=== PATIENT | female | born 1930 | race Caucasian/White ===

== ENCOUNTER 2017-10-07 15:18 | Inpatient (IN) ==
[2017-10-07] MEDS ORDERED: MORPHINE SULFATE 2mg INJECTION IVP PRN (17:17)
[2017-10-07] MEDS ORDERED: NITROGLYCERIN 0.4 MG SUBLINGUAL TABLET SL PRN (17:17)
[2017-10-07] MEDS ORDERED: ONDANSETRON 4 MG/2 ML INJECTION IVP PRN (17:17)
[2017-10-07 17:24] VITALS: BMI 41.3
[2017-10-07] MEDS ORDERED: MELATONIN 5 MG TABLET PO PRN (18:18)
[2017-10-07] MEDS ORDERED: ENOXAPARIN 150 MG/ML INJECTION SQ ONE (18:30)
[2017-10-07] MEDS ORDERED: ENOXAPARIN 120 MG/0.8 ML INJECTION SQ ONE (18:30)
[2017-10-07] MEDS ORDERED: SACUBITRIL/VALSARTAN 49/51mg TABLET PO SCH (21:00)
[2017-10-07] MEDS: ROPINIROLE 1 MG TABLET PO SCH (21:43)
[2017-10-07] MEDS: ASPIRIN 325 MG TABLET PO SCH (21:43)
[2017-10-07] MEDS: MONTELUKAST 10 MG TABLET PO SCH (21:44)
[2017-10-07] MEDS: ATORVASTATIN 20 MG TABLET PO SCH (21:44)
[2017-10-07] MEDS: GUAIFENESIN 400MG TABLET PO SCH (21:44)
[2017-10-07] MEDS: ALBUTEROL 2.5mg/3ml (0.083%) NEB AEROSOL PRN (23:02)
[2017-10-08] MEDS: PANTOPRAZOLE 40 MG TABLET PO SCH (07:13)
[2017-10-08] MEDS: LEVOTHYROXINE 25 MCG TABLET PO SCH (07:13)
--- NOTE | 2017-10-08 07:31 | Cardiology History & Physical ---
History of Present Illness Chief complaint: SOA, cough, hypoxia, influenza A HPI: Marlyn is a 87 year old female who is well known to Dr. Mcdermott with a history of aortic stenosis, carotid stenosis, HTN, HLD, DM TYPE II, COPDand Medtronic PPM who was admitted to [facility] yesterday after being diagnosed with Influenza A in the ED on 10/05/17 and sent home with QID albuterol nebulizers, who returned tachypneic, coughing and hypoxic with O2 sat of 85% on room air. Her troponin was found to be elevated at 0.308 and she was transferred to [facility] in the care of her drug worker, Dr. Mcdermott. She is examined in her room on the Medical floor. She has frequent productive cough, audible wheezes and stridor. She is tachypneic and has conversational dyspnea. She reports fever, chills, fatigue, dyspnea, cough. She denies chest pain or pressure. Review of Systems - Constitutional Constitutional: Present: as per HPI, chills, fatigue, fever(s) - EENMT Eyes: Absent: change in vision Balance: Absent: vertigo Mouth/Throat: Absent: sore throat - Cardiovascular Cardiovascular: Present: dyspnea on exertion. Absent: chest pain, palpitations , syncope - Respiratory Respiratory: Present: as per HPI, cough, dyspnea, dyspnea on exertion, wheezing - Gastrointestinal Gastrointestinal: Absent: abdominal pain, diarrhea, nausea, vomiting - Integumentary/Breasts Integumentary: Absent: rash - Neurological Neurological: Absent: dizziness - Endocrine Endocrine: Absent: palpitations PFSH Patient Stated Medical History Cataracts Yes Dental Problems Yes: UPPERS AND LOWERS Hearing Loss Yes: MILD Cardiac Arrhythmia Yes Congestive Heart Failure Yes Hypertension Yes Asthma Yes Bronchitis Yes Chronic Obstructive Pulmonary Yes Disease (COPD) Pneumonia Yes Pulmonary Edema Yes Sleep Apnea Yes Diabetes Mellitus Type 2 Yes Gastroesophageal Reflux Yes Disease Hx Incontinence Yes Hx Urinary Tract Infection Yes Sepsis Yes Depression Yes Menorrhagia Yes Surgical History: cholecystectomy. hysterectomy. lumbar disc surgery. knee replacement. Medtronic PPM. rotator cuff repair Family History: Mother - of renal failure Father - of lung disease Brother - lung disease Sister - lung disease - Social History Smoking status: Former smoker Substance use type: does not use Alcohol intake frequency: does not drink Household members: none Current occupational status: retired Current residence: Apartment/Private Home Medications Home Medications Medication Instructions Recorded Confirmed Type ALPRAZolam [Xanax] 0.25 mg PO BID PRN 08/02/17 10/09/17 History Albuterol Sulfate 2.5 mg AEROSOL Q4HR PRN 08/02/17 10/09/17 History Aspirin [ASA] 325 mg PO HS 08/02/17 10/08/17 History Atorvastatin [Lipitor] 20 tab PO HS 08/02/17 10/08/17 History Fluticasone/Vilanterol [Breo 1 puff INH DAILY 08/02/17 10/09/17 History Ellipta 200-25 Mcg Inhaler] Furosemide [Lasix] 20 tab PO DAILY 08/02/17 10/08/17 History Guaifenesin [Mucinex] 600 mg PO BID 08/02/17 10/08/17 History Isosorbide Mononitrate ER [Imdur] 60 mg PO DAILY 08/02/17 10/09/17 History Levothyroxine Tab [Synthroid] 25 mcg PO ACB 08/02/17 10/08/17 History Melatonin 5 mg Tablet 5 mg PO HS PRN 08/02/17 10/08/17 History Metformin HCl [Glucophage] 500 mg PO BID 08/02/17 10/08/17 History Montelukast Sodium [Singulair] 10 mg PO HS 08/02/17 10/08/17 History Pantoprazole Sodium [Protonix] 40 mg PO DAILY 08/02/17 10/08/17 History Ropinirole [Requip] 1 mg PO HS 08/02/17 10/08/17 History Benzonatate 1 cap PO TID 10/09/17 10/09/17 History Escitalopram Oxalate [Lexapro] 10 mg PO DAILY 10/09/17 10/09/17 History Oseltamivir Cap [Tamiflu] 75 mg PO BID 10/09/17 10/09/17 History Oxycodone/Apap 10/325 [Percocet 1 - 2 tab PO Q4HR PRN 10/09/17 10/09/17 History 10/325] Tiotropium [place] [Spiriva 2.5 mcg ORAL INH DAILY 10/09/17 10/09/17 History Respimat] Trazodone [Desyrel] 50 mg PO HS 10/09/17 10/09/17 History Allergies Allergy/AdvReac Type Severity Reaction Status Date / Time amoxicillin [From Augmentin] AdvReac Unknown Verified 10/08/17 19:06 clavulanic acid AdvReac Unknown Verified 10/08/17 19:06 [From Augmentin] Exam Vital signs: Temperature 98.1 F 10/08/17 04:00 Pulse Rate 91 10/08/17 04:00 Respiratory Rate 22 10/08/17 04:00 Blood Pressure 119/65 10/08/17 04:00 Pulse Oximetry 97 10/08/17 04:00 - Constitutional mild distress, well nourished, cooperative - Routine HEENT Exam Head: Present: normocephalic ENT: Present: mucous membranes moist - Routine Neck Exam Absent: JVD, carotid bruit - Routine Chest/Breast/Axilla Exam Chest wall: Absent: tenderness - Routine Respiratory Exam Present: dyspnea, stridor, wheezes, diminished air movement. Absent: CTA bilaterally - Routine Cardiovascular Exam Present: RRR, no murmur - Routine Abdominal Exam Present: soft, normoactive bowel sounds - Routine Extremities Exam Present: no edema - Routine Skin Exam Present: intact, dry, warm - Routine Neurological Exam Present: alert, oriented X3 - Routine Psychiatric Exam Present: normal affect, normal thought process Results 10/09/17 04:32 10/09/17 04:32 Cardiac Enzymes 10/07/17 10/07/17 10/08/17 Range/Units 17:55 23:10 04:26 AST 31 31 (14-36) U/L Troponin I 0.261 H 0.321 H 0.218 H (0-0.12) ng/ml CBC 10/08/17 Range/Units 04:26 WBC 6.7 (4.5-11.0) T/MM3 RBC 3.70 L (4.00-5.20) M/MM3 Hgb 10.7 L (12-16) GM/DL Hct 35.0 L (36-46) % Plt Count 146 (130-400) T/MM3 Neut # (Auto) 4.8 (1.8-7.7) T/MM3 Lymph # (Auto) 1.2 (1-4.8) T/MM3 [place] # (Auto) 0.6 (0-0.8) T/MM3 Eos # (Auto) 0.1 (0-0.5) T/MM3 Baso # (Auto) 0.0 (0-0.2) T/MM3 Comprehensive Metabolic Panel 10/07/17 10/08/17 Range/Units 17:55 04:26 Sodium 135 136 (134-144) MEQ/L Potassium 4.0 4.1 (3.6-5) MEQ/L Chloride 103 103 (98-107) MEQ/L Carbon Dioxide 25 27 (22-30) MEQ/L BUN 20.0 H 15.0 (7-17) MG/DL Creatinine 1.1 1.0 (0.7-1.2) MG/DL Glucose 113 H 125 H (65-110) MG/DL Calcium 8.6 8.5 (8.4-10.2) MG/DL AST 31 31 (14-36) U/L ALT 31 29 (9-52) U/L Alkaline Phosphatase 55 68 (38-126) U/L Total Protein 5.4 L 5.3 L (6.3-8.2) G/DL Albumin 3.1 L 3.0 L (3.5-5.0) G/DL Intake and Output 10/07/17 10/08/17 10/08/17 22:59 06:59 14:59 Intake Total 250 / 250 Output Total 550 / 550 Balance -300 / -300 Intake: Oral 250 / 250 Output: Urine 300 / 300 Urine Amount (Catheter) 250 / 250 Other: Urine Appearance Cloudy Urine Color Yellow Urine Odor Foul Stool Color Brown Stool Consistency Formed Size of Bowel Movement Moderate # Incontinent Voids 1 Weight 256 lb 2.834 oz - Imaging and Cardiology Imaging & Cardiology Narrative: Date of Exam: 10/08/17 Ordering Provider: Mirian Moran APRN Type of Exam(s): XR chest 2V Reason for Exam(s): influenza Indication: influenza PROCEDURE: XR chest 2V: Encounter: Initial Comparison: None. Findings: Is patchy consolidation the right mid and lower lung field with possible air bronchograms suggesting pneumonia. There may be a trace pleural effusion. 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 Overall heart size is normal. The trachea is midline. No subdiaphragmatic free air. Impression: Patchy right mid and basilar opacity suggesting pneumonia. Follow-up to resolution is recommended. 10/08/17 09:05 10/09/17 08:00 Date of Exam: 10/07/17 Type of Exam(s): US echo doppler complete DATE OF PROCEDURE October 07, 2017 This a two-dimensional echo with spectral Doppler, color-flow and M-mode. It was obtained in a patient with an elevated troponin and shortness of breath. Left atrial dimension is increased. Left ventricular end-diastolic dimension is normal. Left ventricle wall thickness is normal. LV systolic function is normal with ejection fraction of about 55%. Right atrium is normal. Right ventricle is normal. Aortic root dimension is normal. Mitral valve is morphologically normal with mild mitral regurgitation. Aortic valve shows mild fibrocalcific changes. Transaortic velocities are increased with peak velocity of 2.13 with peak gradient of 18 and mean gradient of 6 with aortic valve area calculated at 1.02 cm2. There is no aortic insufficiency. Tricuspid valve shows mild tricuspid regurgitation with mild pulmonary hypertension with estimated pulmonary artery systolic pressure of 42. Pulmonary valve shows no pulmonary insufficiency. There is no pericardial effusion. IMPRESSION 1. Technically difficult study. 2. Normal LV systolic function with ejection fraction of about 55%. 3. Left atrial dilation. 4. Mild mitral regurgitation. 5. Moderate aortic stenosis with a valve area of 1.02 cm2. 6. Mild tricuspid regurgitation with mild pulmonary hypertension with estimated pulmonary artery systolic pressure of 42. EKG interpretations - EKG EKG results cardiology: WNL - [place], pacemaker, normal Pacemaker: ventricular pacing w/capture (except when refractory), atrial pacing w/capture (except when refractory) Hospital Course This is a general summary of the patient's hospital course. For more details refer to the complete medical record. Time spent with patient: 25 - 35 minutes Assessment and Plan - Attestation Attestation Narrative: 10/09/17 13:35 Recommendation After examining the patient I agree with the above assessment. I am involved in the formulation of the patient's plan of care. - Assessment and Plan (1) Acute on chronic respiratory failure with hypoxia Current visit: Yes Status: Acute Tachypneic, O2 at 2L/NC - Influenza A + - chest X-ray - Consult Pulmonary (2) Influenza A Current visit: Yes Status: Acute (3) COPD with acute exacerbation Current visit: Yes Status: Acute (4) Non-ST elevation myocardial infarction (NSTEMI), type 2 Current visit: Yes Status: Acute Serial troponin has been flat, continue to trend - 1) 0.261, 2) 0.321, 3) 0.218 - Had LHC on 08/02/17 which showed No significant obstructive coronary artery disease. Normal LV systolic function with ejection fraction of about 65%. - Assessment and Plan Acute on Chronic respiratory failure with hypoxia: - Tachypneic, O2 at 2L/NC - Influenza A + - chest X-ray - Consult Pulmonary ( Thank you Dr. Hernadez for your assistance) NSTEMI, Type II: - Serial troponin has been flat, continue to trend - 1) 0.261, 2) 0.321, 3) 0.218 - Had LHC on 08/02/17 which showed No significant obstructive coronary artery disease. Normal LV systolic function with ejection fraction of about 65%.
--- NOTE | 2017-10-08 08:45 | XRay Report ---
Indication: influenza PROCEDURE: XR chest 2V: Encounter: Initial Comparison: None. Findings: Is patchy consolidation the right mid and lower lung field with possible air bronchograms suggesting pneumonia. There may be a trace pleural effusion. 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 Overall heart size is normal. The trachea is midline. No subdiaphragmatic free air. Impression: Patchy right mid and basilar opacity suggesting pneumonia. Follow-up to resolution is recommended. .
[2017-10-08] MEDS ORDERED: FLUTICASONE PO SCH (09:00)
[2017-10-08] MEDS ORDERED: VILANTEROL PO SCH (09:00)
[2017-10-08] MEDS: FUROSEMIDE 40 MG TABLET PO SCH ×2 (09:29→16:45)
[2017-10-08] MEDS: GUAIFENESIN 400MG TABLET PO SCH ×2 (09:29→23:08)
[2017-10-08] MEDS: ALBUTEROL/IPRATROPIUM 2.5mg-0.5mg/3ml NEB AEROSOL SCH ×3 (11:00→19:19)
--- NOTE | 2017-10-08 12:04 | Pulmonology Consult Note ---
History of Present Illness Consult date: 10/08/17 Reason for consult: pneumonia Chief complaint: pneumonia History of present illness: HPI: Marlyn is a 87 year old female with history of pulmonary issues including asthma who presented to the ED in [place] last with flu-like symptoms. She was tested for rapid influenza and was positive for influenza A. She states the doctor there "does not believe in Tamiflu" and she was sent home. On Saturday she went back to the ED due to fever and chills. She was wheezy and was given a "shot of steroids" and sent home. She suffered through the weekend with severe cough and wheezing with progressive shortness of breath. She was admitted 10/07/17 to [facility] for acute on chronic hypoxemic respiratory failure, exacerbation of COPD and Influenza. She is well known to Dr. Mcdermott with a history of aortic stenosis, carotid stenosis, HTN, HLD, DM TYPE II, COPD and [employer] PPM She has symptoms including tachypnea, coughing and hypoxia with O2 sat of 85% on room air. Her troponin was found to be elevated at 0.308 and she was transferred to [facility] in the care of her diesel plant operator, Dr. Mcdermott. Review of Systems - Constitutional Constitutional: Present: as per HPI, chills, fatigue, fever(s) - EENMT Eyes: Absent: change in vision Balance: Absent: vertigo Mouth/Throat: Absent: sore throat - Cardiovascular Cardiovascular: Present: dyspnea on exertion. Absent: chest pain, palpitations , syncope - Respiratory Respiratory: Present: as per HPI, cough, dyspnea, dyspnea on exertion, wheezing - Gastrointestinal Gastrointestinal: Absent: abdominal pain, diarrhea, nausea, vomiting - Integumentary/Breasts Integumentary: Absent: rash - Neurological Neurological: Absent: dizziness - Endocrine Endocrine: Absent: palpitations PFSH Patient Stated Medical History Cataracts Yes Dental Problems Yes: UPPERS AND LOWERS Hearing Loss Yes: MILD Cardiac Arrhythmia Yes Congestive Heart Failure Yes Hypertension Yes Asthma Yes Bronchitis Yes Chronic Obstructive Pulmonary Yes Disease (COPD) Pneumonia Yes Pulmonary Edema Yes Sleep Apnea Yes Diabetes Mellitus Type 2 Yes Gastroesophageal Reflux Yes Disease Hx Incontinence Yes Hx Urinary Tract Infection Yes Sepsis Yes Depression Yes Menorrhagia Yes Surgical History: cholecystectomy. hysterectomy. lumbar disc surgery. knee replacement. Medtronic PPM. rotator cuff repair Family History: Mother - of renal failure Father - of lung disease Brother - lung disease Sister - lung disease - Social History Smoking status: Former smoker Substance use type: does not use Alcohol intake frequency: does not drink Household members: none Current occupational status: retired Current residence: Apartment/Private Home Review of Systems All systems: reviewed and no additional remarkable complaints except as stated PFSH Patient Stated Medical History Cataracts Yes Dental Problems Yes: UPPERS AND LOWERS Hearing Loss Yes: MILD Cardiac Arrhythmia Yes Congestive Heart Failure Yes Hypertension Yes Asthma Yes Bronchitis Yes Chronic Obstructive Pulmonary Yes Disease (COPD) Pneumonia Yes Pulmonary Edema Yes Sleep Apnea Yes Diabetes Mellitus Type 2 Yes Gastroesophageal Reflux Yes Disease Hx Incontinence Yes Hx Urinary Tract Infection Yes Sepsis Yes Depression Yes Menorrhagia Yes Surgical History: cholecystectomy. hysterectomy. lumbar disc surgery. knee replacement. Medtronic PPM. rotator cuff repair - Social History Smoking status: Former smoker Current residence: Apartment/Private Home Medications Home Medications Medication Instructions Recorded Confirmed Type ALPRAZolam [Xanax] 0.25 mg PO BID PRN 08/02/17 08/02/17 History Albuterol Sulfate 2.5 mg AEROSOL 1-2XD PRN 08/02/17 08/02/17 History Aspirin [ASA] 325 mg PO HS 08/02/17 08/02/17 History Atorvastatin [Lipitor] 1 tab PO HS 08/02/17 08/02/17 History Fluticasone/Vilanterol [Breo 1 puff INH DAILY 08/02/17 08/02/17 History Ellipta 200-25 Mcg Inhaler] Furosemide [Lasix] 1 tab PO DAILY 08/02/17 08/02/17 History Guaifenesin [Mucinex] 400 mg PO BID 08/02/17 08/02/17 History Hydrocodone/APAP 10/325 [[place] 1 tab PO Q4H PRN 08/02/17 08/02/17 History 10/325] Isosorbide Mononitrate ER [Imdur] 60 mg PO DAILY 08/02/17 08/02/17 History Levothyroxine Tab [Synthroid] 25 mcg PO ACB 08/02/17 08/02/17 History Melatonin 5 mg Tablet 5 mg PO HS PRN 08/02/17 08/02/17 History Metformin HCl [Glucophage] 500 mg PO BID 08/02/17 08/02/17 History Montelukast Sodium [Singulair] 10 mg PO HS 08/02/17 08/02/17 History Pantoprazole Sodium [Protonix] 40 mg PO DAILY 08/02/17 08/02/17 History Ropinirole [Requip] 1 mg PO HS 08/02/17 08/02/17 History SACUBITRIL/VALSARTAN 49/51mg 1 tab PO BID 08/02/17 08/02/17 History [ENTRESTO 49/51mg] Tiotropium [place] [Spiriva 1 puff INH DAILY 08/02/17 08/02/17 History Respimat] Allergies Allergy/AdvReac Type Severity Reaction Status Date / Time amoxicillin [From Augmentin] Allergy Unknown Unverified 10/08/17 07:44 clavulanic acid Allergy Unknown Unverified 10/08/17 07:44 [From Augmentin] Exam Vital signs: Temperature 98.9 F 10/08/17 09:57 Pulse Rate 79 10/08/17 09:01 Respiratory Rate 24 10/08/17 11:00 Blood Pressure 122/65 10/08/17 09:01 Pulse Oximetry 97 10/08/17 11:00 - Constitutional no acute distress - Routine HEENT Exam Eye: Present: EOMI, PERRL. Absent: conjunctival icterus ENT: Present: mucous membranes moist - Routine Neck Exam Present: supple - Routine Respiratory Exam Present: prolonged expiratory phase, wheezes. Absent: accessory muscle use - Routine Cardiovascular Exam Present: RRR, murmur - Routine Abdominal Exam Present: soft - Routine Extremities Exam Absent: cyanosis, clubbing - Routine Skin Exam Absent: rash - Routine Neurological Exam Absent: motor deficit Results - Laboratory Findings CBC and BMP: 10/08/17 04:26 10/08/17 04:26 Abnormal lab findings: Abnormal Labs 10/07/17 10/07/17 10/08/17 17:55 23:10 04:26 RBC 3.70 L Hgb 10.7 L Hct 35.0 L MCHC 30.6 L Neut % (Auto) 71.8 H Lymph % (Auto) 17.9 L [place] % (Auto) 9.2 H BUN 20.0 H Glucose 113 H Troponin I 0.261 H 0.321 H Total Protein 5.4 L Albumin 3.1 L Globulin 2.3 L Specimen Hemolysis 36 H 10/08/17 10/08/17 04:26 10:24 RBC Hgb Hct MCHC Neut % (Auto) Lymph % (Auto) [place] % (Auto) BUN Glucose 125 H Troponin I 0.218 H 0.136 H Total Protein 5.3 L Albumin 3.0 L Globulin 2.3 L Specimen Hemolysis - Diagnostic Findings Chest x-ray: report reviewed, image reviewed Assessment and Plan (1) Acute on chronic respiratory failure with hypoxia Status: Acute Assessment and plan: Is tolerating O2 by nc to keep sPo2 90% or greater. NIPPV can be used as needed to decrease her work of breathing. Current Visit: Yes (2) Influenza A Status: Acute Assessment and plan: Tamiflu is most effective to reduce the severity of symptoms when given in the first 48 hours after onset of fever, however in cases of severe influenza exacerbation, such as those with comorbidities high-risk for hospitalization, we would use Tamiflu even later in the course of infection (though data is limited). Avoid high-dose steroids in those with influenza Supportive care Current Visit: Yes (3) COPD with acute exacerbation Status: Acute Assessment and plan: Given her severe wheeze and cough I think we should use Prednisone 20/daily. Continue neb albuterol/ipratropium q4H. Recommend Breo once daily. CXR does show airspace opacity in the right lung base. She is afebrile and her WBC count is normal. I recommend starting IV Rocephin and monitoring all these parameters closely Current Visit: Yes - Time Spent With Patient Total time spent is greater than 50% in coordination of care (as documented) at patient's floor/unit and/or counseling patient: 25 - 35 minutes
[2017-10-08] MEDS: CEFTRIAXONE 1 G in NS 100 ML IV SCH (13:57)
[2017-10-08] MEDS ORDERED: PNEUMOCOCCAL VAC ADMIN CHARGE INJ ONE (14:00)
[2017-10-08] MEDS: PredniSONE 10 MG TABLET PO SCH (16:46)
[2017-10-08] MEDS ORDERED: PNEUMOCOCCAL 23 VACCINE 0.5ml INJECTION IM ONE (17:00)
[2017-10-08] MEDS: METFORMIN 500 MG TABLET PO SCH (18:10)
[2017-10-08] MEDS: ROPINIROLE 1 MG TABLET PO SCH (23:08)
[2017-10-08] MEDS: ASPIRIN 325 MG TABLET PO SCH (23:08)
[2017-10-08] MEDS: ATORVASTATIN 20 MG TABLET PO SCH (23:09)
[2017-10-08] MEDS: MONTELUKAST 10 MG TABLET PO SCH (23:09)
--- NOTE | 2017-10-09 06:52 | Echocardiogram ---
DATE OF PROCEDURE October 07, 2017 This a two-dimensional echo with spectral Doppler, color-flow and M-mode. It was obtained in a patient with an elevated troponin and shortness of breath. Left atrial dimension is increased. Left ventricular end-diastolic dimension is normal. Left ventricle wall thickness is normal. LV systolic function is normal with ejection fraction of about 55%. Right atrium is normal. Right ventricle is normal. Aortic root dimension is normal. Mitral valve is morphologically normal with mild mitral regurgitation. Aortic valve shows mild fibrocalcific changes. Transaortic velocities are increased with peak velocity of 2.13 with peak gradient of 18 and mean gradient of 6 with aortic valve area calculated at 1.02 cm2. There is no aortic insufficiency. Tricuspid valve shows mild tricuspid regurgitation with mild pulmonary hypertension with estimated pulmonary artery systolic pressure of 42. Pulmonary valve shows no pulmonary insufficiency. There is no pericardial effusion. IMPRESSION 1. Technically difficult study. 2. Normal LV systolic function with ejection fraction of about 55%. 3. Left atrial dilation. 4. Mild mitral regurgitation. 5. Moderate aortic stenosis with a valve area of 1.02 cm2. 6. Mild tricuspid regurgitation with mild pulmonary hypertension with estimated pulmonary artery systolic pressure of 42. MTDD
[2017-10-09] MEDS: LEVOTHYROXINE 25 MCG TABLET PO SCH (07:11)
[2017-10-09] MEDS: PANTOPRAZOLE 40 MG TABLET PO SCH (07:11)
[2017-10-09] MEDS: ALBUTEROL/IPRATROPIUM 2.5mg-0.5mg/3ml NEB AEROSOL SCH ×6 (08:15→22:58)
--- NOTE | 2017-10-09 08:59 | XRay Report ---
Indication: pneumonia PROCEDURE: XR chest 1V: Encounter: Initial Comparison: 10/08/2017 Findings: There is cardiomegaly and pulmonary vascular congestion with perhaps mild interstitial pulmonary edema. No definite pleural effusion. Trachea is midline. No subdiaphragmatic free air. 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 No lobar consolidation. No mediastinal or hilar adenopathy. Impression: Mild CHF. .
[2017-10-09] MEDS ORDERED: FLUTICASONE/VILANTEROL 100/25mcg INHALER ORAL INH SCH (09:00)
[2017-10-09] MEDS: GUAIFENESIN 400MG TABLET PO SCH ×2 (09:13→20:43)
[2017-10-09] MEDS: FUROSEMIDE 40 MG TABLET PO SCH ×2 (09:13→17:51)
[2017-10-09] MEDS: METFORMIN 500 MG TABLET PO SCH ×2 (09:13→17:51)
[2017-10-09] MEDS: PredniSONE 10 MG TABLET PO SCH ×2 (09:13→17:51)
--- NOTE | 2017-10-09 11:16 | Pulmonology Progress Note ---
Exam Vital signs: Temperature 96.9 F 10/09/17 08:00 Pulse Rate 73 10/09/17 08:00 Respiratory Rate 24 10/09/17 08:15 Blood Pressure 110/65 10/09/17 08:00 Pulse Oximetry 94 10/09/17 10:45 Assessment and Plan - Assessment and Plan Acute Hypoxic Respiratory Failure Influenza A - on tamiflu COPD exacerbation JOSELITO - Cpap noc NSTEMI Plan: Pt currently on O2 at 2L per NC. On Breo 100/25, duoneb QID, change to pulmicort BID and A/A q4hr. On prednisone 20mg daily for wheezing but would want to wean quickly secondary to her influenza. Is on Tamiflu, CXR today shows improvement in RLL infiltrates, cont rocephin and follow cxr. Afebrile and no WBC noted at this time. C/o of being in the hospital frequently for respiratory infections, check IgG. - Time Spent With Patient Total time spent is greater than 50% in coordination of care (as documented) at patient's floor/unit and/or counseling patient: less than 15 minutes
--- NOTE | 2017-10-09 11:59 | Cardiology Progress Note ---
<Mirian Moran - Last Filed: 10/10/17 11:36> Subjective Principal diagnosis: NSTEMI Type II, Influenza Interval history: Marlyn is seen in follow up for influenza, NSTEMI type II. She is breathing easier than yesterday and is now on 1L/NC. She denies chest pain or pressure. Exam Vital signs: Temperature 97.3 F 10/09/17 11:39 Pulse Rate 79 10/09/17 11:39 Respiratory Rate 24 10/09/17 11:39 Blood Pressure 117/56 10/09/17 11:39 Pulse Oximetry 96 10/09/17 11:39 - Constitutional mild distress, cooperative - Routine HEENT Exam Head: Present: normocephalic ENT: Present: mucous membranes moist - Routine Neck Exam Absent: JVD, carotid bruit - Routine Chest/Breast/Axilla Exam Chest wall: Absent: tenderness - Routine Respiratory Exam Present: dyspnea, decreased breath sounds, wheezes. Absent: CTA bilaterally - Routine Cardiovascular Exam Present: RRR, no murmur - Routine Abdominal Exam Present: soft, normoactive bowel sounds - Routine Extremities Exam Present: no edema - Routine Skin Exam Present: intact, dry, warm - Routine Neurological Exam Present: alert, oriented X3 - Routine Psychiatric Exam Present: normal affect, normal thought process - Additional findings Additional findings: Albuterol Sulfate (Proventil Neb (0.083%)) 2.5 mg AEROSOL 1-2XD PRN PRN Reason: Shortness of air/wheezing Last Admin: 10/07/17 23:02 Dose: 2.5 mg Albuterol/Ipratropium (Duoneb) 3 ml AEROSOL Q4HR [facility] Aspirin (Asa) 325 mg PO [facility] Last Admin: 10/08/17 23:08 Dose: 325 mg Atorvastatin Calcium (Lipitor) 20 mg PO [facility] Last Admin: 10/08/17 23:09 Dose: 20 mg Budesonide (Pulmicort Inhalation) 0.5 mg AEROSOL RTBID [facility] Furosemide (Lasix) 40 mg PO 0900,1700 [facility] Last Admin: 10/09/17 09:13 Dose: 40 mg Guaifenesin (Mucinex) 400 mg PO BID [facility] Last Admin: 10/09/17 09:13 Dose: 400 mg Ceftriaxone Sodium 1 g/ Sodium (Chloride) 100 mls @ 200 mls/hr IV Q24H [facility] Last Infusion: 10/08/17 14:40 Dose: Infused Levothyroxine Sodium (Synthroid) 25 mcg PO ACB [facility] Last Admin: 10/09/17 07:11 Dose: 25 mcg Melatonin (Melatonin) 5 mg PO HS PRN PRN Reason: Insomnia Metformin HCl (Glucophage) 500 mg PO BIDWM [facility] Last Admin: 10/09/17 09:13 Dose: 500 mg Montelukast Sodium (Singulair) 10 mg PO [facility] Last Admin: 10/08/17 23:09 Dose: 10 mg Morphine Sulfate (Morphine Sulfate Inj) 2 mg IVP Q10M PRN PRN Reason: Chest pain Nitroglycerin (Nitrostat) 0.4 mg SL Q5M PRN PRN Reason: Chest pain Ondansetron HCl (Zofran) 4 mg IVP Q6H PRN PRN Reason: Nausea &/or vomiting Oseltamivir Phosphate (Tamiflu) 75 mg PO BID [facility] Stop: 10/13/17 09:01 Last Admin: 10/09/17 09:14 Dose: 75 mg Pantoprazole Sodium (Protonix Tab) 40 mg PO B [facility] Last Admin: 10/09/17 07:11 Dose: 40 mg Prednisone (Deltasone) 10 mg PO BIDWM [facility] Last Admin: 10/09/17 09:13 Dose: 10 mg Ropinirole HCl (Requip) 1 mg PO [facility] Last Admin: 10/08/17 23:08 Dose: 1 mg Results 10/10/17 09:38 10/10/17 09:38 Cardiac Enzymes 10/09/17 10/09/17 Range/Units 04:32 04:32 Troponin I 0.076 (0-0.12) ng/ml B-Natriuretic Peptide 1190 H (0-175) pg/mL Coagulation 10/09/17 Range/Units 04:32 B-Natriuretic Peptide 1190 H (0-175) pg/mL CBC 10/09/17 Range/Units 04:32 WBC 6.3 (4.5-11.0) T/MM3 RBC 3.91 L (4.00-5.20) M/MM3 Hgb 11.5 L (12-16) GM/DL Hct 36.2 (36-46) % Plt Count 174 (130-400) T/MM3 Comprehensive Metabolic Panel 10/09/17 Range/Units 04:32 Sodium 135 (134-144) MEQ/L Potassium 4.0 (3.6-5) MEQ/L Chloride 98 (98-107) MEQ/L Carbon Dioxide 31 H (22-30) MEQ/L BUN 16.0 (7-17) MG/DL Creatinine 0.9 (0.7-1.2) MG/DL Glucose 142 H (65-110) MG/DL Calcium 8.9 (8.4-10.2) MG/DL Intake and Output 10/08/17 10/09/17 10/09/17 22:59 06:59 14:59 Intake Total 850 / 850 Balance 850 / 850 Intake: Oral 850 / 850 Other: Urine Appearance Clear Urine Color Yellow Urine Odor Normal Size of Bowel Movement Smear # Voids 1 2 # Bowel Movements 1 Weight 250 lb 7.122 oz Patient Weight 10/10/17 06:59 Weight 250 lb 7.122 oz - Imaging and Cardiology Imaging & Cardiology Narrative: Date of Exam: 10/09/17 Ordering Provider: Roland Hernadez MD Type of Exam(s): XR chest 1V Reason for Exam(s): pneumonia Indication: pneumonia PROCEDURE: XR chest 1V: Encounter: Initial Comparison: 10/08/2017 Findings: There is cardiomegaly and pulmonary vascular congestion with perhaps mild interstitial pulmonary edema. No definite pleural effusion. Trachea is midline. No subdiaphragmatic free air. 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 No lobar consolidation. No mediastinal or hilar adenopathy. Impression: Mild CHF. 10/09/17 12:01 10/09/17 12:01 ate of Exam: 10/07/17 Type of Exam(s): US echo doppler complete DATE OF PROCEDURE October 07, 2017 This a two-dimensional echo with spectral Doppler, color-flow and M-mode. It was obtained in a patient with an elevated troponin and shortness of breath. Left atrial dimension is increased. Left ventricular end-diastolic dimension is normal. Left ventricle wall thickness is normal. LV systolic function is normal with ejection fraction of about 55%. Right atrium is normal. Right ventricle is normal. Aortic root dimension is normal. Mitral valve is morphologically normal with mild mitral regurgitation. Aortic valve shows mild fibrocalcific changes. Transaortic velocities are increased with peak velocity of 2.13 with peak gradient of 18 and mean gradient of 6 with aortic valve area calculated at 1.02 cm2. There is no aortic insufficiency. Tricuspid valve shows mild tricuspid regurgitation with mild pulmonary hypertension with estimated pulmonary artery systolic pressure of 42. Pulmonary valve shows no pulmonary insufficiency. There is no pericardial effusion. IMPRESSION 1. Technically difficult study. 2. Normal LV systolic function with ejection fraction of about 55%. 3. Left atrial dilation. 4. Mild mitral regurgitation. 5. Moderate aortic stenosis with a valve area of 1.02 cm2. 6. Mild tricuspid regurgitation with mild pulmonary hypertension with estimated pulmonary artery systolic pressure of 42. Assessment and Plan - Assessment and Plan (1) Acute on chronic respiratory failure with hypoxia Status: Acute (2) Influenza A Status: Acute (3) COPD with acute exacerbation Status: Acute (4) Non-ST elevation myocardial infarction (NSTEMI), type 2 Status: Acute - Assessment and Plan 10/08/17 Acute on Chronic respiratory failure with hypoxia: - Tachypneic, O2 at 2L/NC - Influenza A + - chest X-ray - Consult Pulmonary ( Thank you Dr. Hernadez for your assistance) NSTEMI, Type II: - Serial troponin has been flat, continue to trend - 1) 0.261, 2) 0.321, 3) 0.218 - Had LHC on 08/02/17 which showed No significant obstructive coronary artery disease. Normal LV systolic function with ejection fraction of about 65%. - 2D echo 10/09/17 Lovenox for DVT prophylaxis Remains on O2 at 1L/NC, C Pap at night Hospital Course Summary Disclaimer: The visit summary below is not to be considered part of the above Progress Note. <Abdiel Mcdermott - Last Filed: 10/16/17 11:18> Exam Vital signs: Temperature 98.2 F 10/15/17 15:23 Pulse Rate 88 10/15/17 16:00 Respiratory Rate 24 10/15/17 15:23 Blood Pressure 126/65 10/15/17 15:23 Pulse Oximetry 94 10/15/17 15:23 Results 10/15/17 04:14 10/15/17 04:14 Assessment and Plan - Assessment and Plan (1) Acute on chronic respiratory failure with hypoxia Status: Acute (2) Influenza A Status: Acute (3) COPD with acute exacerbation Status: Acute (4) Non-ST elevation myocardial infarction (NSTEMI), type 2 Status: Acute - Attestation Attestation Narrative: 10/16/17 11:18 Recommendation After examining the patient I agree with the above assessment. I am involved in the formulation of the patient's plan of care. Hospital Course Summary Disclaimer: The visit summary below is not to be considered part of the above Progress Note.
[2017-10-09] MEDS: BUDESONIDE INH.SOLN 0.5mg/2ml NEB AEROSOL SCH ×2 (12:10→19:34)
[2017-10-09] MEDS: CEFTRIAXONE 1 G in NS 100 ML IV SCH (12:29)
[2017-10-09] MEDS: INSULIN ASPART 100unit/ml INJECTION SQ PRN ×2 (17:52→22:33)
[2017-10-09] MEDS: ROPINIROLE 1 MG TABLET PO SCH (20:43)
[2017-10-09] MEDS: ASPIRIN 325 MG TABLET PO SCH (20:43)
[2017-10-09] MEDS: MONTELUKAST 10 MG TABLET PO SCH (20:43)
[2017-10-09] MEDS: ATORVASTATIN 20 MG TABLET PO SCH (20:43)
[2017-10-10] MEDS: ALBUTEROL/IPRATROPIUM 2.5mg-0.5mg/3ml NEB AEROSOL SCH ×6 (02:59→23:22)
[2017-10-10] MEDS: LEVOTHYROXINE 25 MCG TABLET PO SCH (05:50)
[2017-10-10] MEDS: PANTOPRAZOLE 40 MG TABLET PO SCH (05:50)
[2017-10-10] MEDS: BUDESONIDE INH.SOLN 0.5mg/2ml NEB AEROSOL SCH ×2 (07:27→19:59)
[2017-10-10] MEDS: ENOXAPARIN 40 MG/0.4 ML INJECTION SQ SCH (09:15)
[2017-10-10] MEDS: FUROSEMIDE 40 MG TABLET PO SCH ×2 (09:16→18:17)
[2017-10-10] MEDS: GUAIFENESIN 400MG TABLET PO SCH ×2 (09:16→20:58)
[2017-10-10] MEDS: METFORMIN 500 MG TABLET PO SCH ×2 (09:16→18:17)
[2017-10-10] MEDS: PredniSONE 10 MG TABLET PO SCH ×2 (09:16→18:17)
--- NOTE | 2017-10-10 11:51 | Pulmonology Progress Note ---
Subjective Principal diagnosis: NSTEMI Type II, Influenza Interval history: Pt. resting comfortably in bed. States she has been able to breath better with the scheduled breathing treatments. Currently on 0.5L-NC, will continue to ween as tolerated. Pt. still has a moist cough with minimal sputum production. Exam Vital signs: Temperature 96.6 F L 10/10/17 11:05 Pulse Rate 85 10/10/17 11:05 Respiratory Rate 20 10/10/17 11:05 Blood Pressure 115/65 10/10/17 11:05 Pulse Oximetry 94 10/10/17 11:05 - Constitutional no acute distress, well developed, obese - Routine HEENT Exam Head: Present: normocephalic, atraumatic Eye: Present: EOMI, PERRL ENT: Present: mucous membranes moist - Routine Neck Exam Present: supple, full ROM, trachea midline - Routine Respiratory Exam Present: decreased breath sounds, wheezes Comments: Insp./Exp. throughout, diminished - Routine Cardiovascular Exam Present: RRR, S1, S2 - Routine Abdominal Exam Present: soft, normoactive bowel sounds, non tender - Routine Extremities Exam Present: edema, non tender, pulses intact, normal capillary refill Comments: Trace edema to BLE - Routine Skin Exam Present: intact, dry, warm - Routine Neurological Exam Present: alert, oriented X3 - Routine Psychiatric Exam Present: normal affect, normal thought process, cooperative, good insight, good judgment Assessment and Plan - Assessment and Plan Acute Hypoxic Respiratory Failure Influenza A - on tamiflu COPD exacerbation JOSELITO - Home Cpap noc NSTEMI Plan: Pt currently on O2 at 0.5L per NC, will continue to ween as tolerated. On pulmicort BID and A/A q4hr. On prednisone 20mg daily for wheezing but would want to wean quickly secondary to her influenza. Is on Tamiflu, CXR 10/09/17 shows improvement in RLL infiltrates, cont rocephin and follow cxr. Afebrile and no WBC noted at this time. C/o of being in the hospital frequently for respiratory infections. IgG checked and 497, will consider follow up with OP infectious disease for further evaluation. - Time Spent With Patient Total time spent is greater than 50% in coordination of care (as documented) at patient's floor/unit and/or counseling patient: less than 15 minutes
[2017-10-10] MEDS: Oxycodone/Apap 10/325 1 TAB PO PRN (11:53)
--- NOTE | 2017-10-10 12:01 | Cardiology Progress Note ---
<Mirian Moran - Last Filed: 10/11/17 15:08> Subjective Principal diagnosis: NSTEMI Type II, Influenza Interval history: Marlyn is seen in follow up for influenza, NSTEMI type II. She is breathing easier than yesterday, still has frequent moist productive cough. She denies chest pain or pressure. Exam Vital signs: Temperature 96.6 F L 10/10/17 11:05 Pulse Rate 85 10/10/17 11:05 Respiratory Rate 20 10/10/17 11:05 Blood Pressure 115/65 10/10/17 11:05 Pulse Oximetry 94 10/10/17 11:05 - Constitutional mild distress, cooperative - Routine HEENT Exam Head: Present: normocephalic ENT: Present: mucous membranes moist - Routine Neck Exam Absent: JVD, carotid bruit - Routine Chest/Breast/Axilla Exam Chest wall: Absent: tenderness - Routine Respiratory Exam Present: dyspnea, decreased breath sounds, wheezes. Absent: CTA bilaterally - Routine Cardiovascular Exam Present: RRR, no murmur - Routine Abdominal Exam Present: soft, normoactive bowel sounds - Routine Extremities Exam Present: no edema - Routine Skin Exam Present: intact, dry, warm - Routine Neurological Exam Present: alert, oriented X3 - Routine Psychiatric Exam Present: normal affect, normal thought process - Additional findings Additional findings: Recommendation After examining the patient I agree with the above assessment. I am involved in the formulation of the patient's plan of care. Results 10/10/17 09:38 10/11/17 11:05 CBC 10/10/17 Range/Units 09:38 WBC 7.0 (4.5-11.0) T/MM3 RBC 4.42 (4.00-5.20) M/MM3 Hgb 13.0 D (12-16) GM/DL Hct 40.9 D (36-46) % Plt Count 233 (130-400) T/MM3 Comprehensive Metabolic Panel 10/10/17 Range/Units 09:38 Sodium 139 (134-144) MEQ/L Potassium 3.7 (3.6-5) MEQ/L Chloride 97 L (98-107) MEQ/L Carbon Dioxide 32 H (22-30) MEQ/L BUN 22.0 H (7-17) MG/DL Creatinine 1.0 (0.7-1.2) MG/DL Glucose 115 H (65-110) MG/DL Calcium 9.4 (8.4-10.2) MG/DL Intake and Output 10/09/17 10/10/17 10/10/17 22:59 06:59 14:59 Intake Total 300 / 300 240 / 240 Output Total 1150 / 1150 850 / 850 Balance -1150 / -1150 -550 / -550 240 / 240 Intake: Oral 300 / 300 240 / 240 Output: Urine 1150 / 1150 850 / 850 Other: Urine Appearance Clear Clear Urine Color Pale Pale Yellow Yellow Urine Odor Normal Normal # Voids 2 3 Weight 242 lb 4.608 oz Patient Weight 10/11/17 06:59 Weight 242 lb 4.608 oz Assessment and Plan - Assessment and Plan (1) Acute on chronic respiratory failure with hypoxia Status: Acute (2) Influenza A Status: Acute (3) COPD with acute exacerbation Status: Acute (4) Non-ST elevation myocardial infarction (NSTEMI), type 2 Status: Acute - Assessment and Plan 10/08/17 Acute on Chronic respiratory failure with hypoxia: - Tachypneic, O2 at 2L/NC - Influenza A + - chest X-ray - Consult Pulmonary ( Thank you Dr. Hernadez for your assistance) NSTEMI, Type II: - Serial troponin has been flat, continue to trend - 1) 0.261, 2) 0.321, 3) 0.218 - Had LHC on 08/02/17 which showed No significant obstructive coronary artery disease. Normal LV systolic function with ejection fraction of about 65%. - 2D echo 10/09/17 Lovenox for DVT prophylaxis Remains on O2 at 1L/NC, C Pap at night 10/10/17 Continue plan per pulmonary until they feel comfortable with discharge Continue to improve slowly, remains on O2 Hospital Course Summary Disclaimer: The visit summary below is not to be considered part of the above Progress Note. <Abdiel Mcdermott - Last Filed: 10/16/17 11:21> Exam Vital signs: Temperature 98.2 F 10/15/17 15:23 Pulse Rate 88 10/15/17 16:00 Respiratory Rate 24 10/15/17 15:23 Blood Pressure 126/65 10/15/17 15:23 Pulse Oximetry 94 10/15/17 15:23 Results 10/15/17 04:14 10/15/17 04:14 Assessment and Plan - Assessment and Plan (1) Acute on chronic respiratory failure with hypoxia Status: Acute (2) Influenza A Status: Acute (3) COPD with acute exacerbation Status: Acute (4) Non-ST elevation myocardial infarction (NSTEMI), type 2 Status: Acute - Attestation Attestation Narrative: 10/16/17 11:20 Recommendation After examining the patient I agree with the above assessment. I am involved in the formulation of the patient's plan of care. Hospital Course Summary Disclaimer: The visit summary below is not to be considered part of the above Progress Note.
[2017-10-10] MEDS: CEFTRIAXONE 1 G in NS 100 ML IV SCH (13:09)
[2017-10-10] MEDS: INSULIN ASPART 100unit/ml INJECTION SQ PRN (18:18)
[2017-10-10] MEDS: MONTELUKAST 10 MG TABLET PO SCH (20:58)
[2017-10-10] MEDS: ASPIRIN 325 MG TABLET PO SCH (20:58)
[2017-10-10] MEDS: ROPINIROLE 1 MG TABLET PO SCH (20:58)
[2017-10-10] MEDS: ATORVASTATIN 20 MG TABLET PO SCH (20:58)
[2017-10-11] MEDS: ALBUTEROL/IPRATROPIUM 2.5mg-0.5mg/3ml NEB AEROSOL SCH ×6 (03:26→23:38)
[2017-10-11] MEDS: PANTOPRAZOLE 40 MG TABLET PO SCH (06:11)
[2017-10-11] MEDS: LEVOTHYROXINE 25 MCG TABLET PO SCH (06:11)
[2017-10-11] MEDS: METFORMIN 500 MG TABLET PO SCH ×2 (08:45→18:00)
[2017-10-11] MEDS: FUROSEMIDE 40 MG TABLET PO SCH (08:45)
[2017-10-11] MEDS: ENOXAPARIN 40 MG/0.4 ML INJECTION SQ SCH (08:45)
[2017-10-11] MEDS: PredniSONE 10 MG TABLET PO SCH ×2 (08:45→18:00)
[2017-10-11] MEDS: GUAIFENESIN 400MG TABLET PO SCH ×2 (08:45→21:13)
[2017-10-11] MEDS: BUDESONIDE INH.SOLN 0.5mg/2ml NEB AEROSOL SCH ×2 (09:10→20:03)
[2017-10-11] MEDS: Oxycodone/Apap 10/325 1 TAB PO PRN (09:10)
--- NOTE | 2017-10-11 10:21 | Pulmonology Progress Note ---
Subjective Principal diagnosis: NSTEMI Type II, Influenza Interval history: Pt in bed, states she feels she is getting better each day. Finally able to get stuff coughed up. + cough with some sputum, + wheezing still. Exam Vital signs: Temperature 97.9 F 10/11/17 08:48 Pulse Rate 80 10/11/17 08:48 Respiratory Rate 24 10/11/17 09:10 Blood Pressure 121/77 10/11/17 08:48 Pulse Oximetry 100 10/11/17 09:10 - Constitutional no acute distress, obese, cooperative - Routine HEENT Exam Head: Present: normocephalic, atraumatic Eye: Present: EOMI, PERRL ENT: Present: mucous membranes moist - Routine Neck Exam Present: supple, full ROM - Routine Respiratory Exam Present: decreased breath sounds, wheezes Comments: exp wheeze - Routine Cardiovascular Exam Present: RRR, S1, S2, no murmur - Routine Abdominal Exam Present: soft, normoactive bowel sounds - Routine Extremities Exam Present: no edema, non tender, full ROM - Routine Back/Spine/Pelvis Exam Back/Spine: Present: full ROM - Routine Skin Exam Present: intact, dry - Routine Neurological Exam Present: alert, oriented X3, CN II-XII intact - Routine Psychiatric Exam Present: normal affect, normal thought process, cooperative, good judgment Assessment and Plan - Assessment and Plan Acute Hypoxic Respiratory Failure Influenza A - on tamiflu COPD exacerbation JOSELITO - Home Cpap [facility] NSTEMI hypogammaglobulinemia Plan: Pt currently on O2 at 1L per NC, will continue to ween as tolerated, home cpap at [facility]. On pulmicort BID and A/A q4hr. On prednisone 20mg daily for wheezing but would want to wean quickly secondary to her influenza. Is on Tamiflu, CXR shows improvement in RLL infiltrates, cont rocephin and follow cxr in am. Afebrile and no WBC noted at this time. C/o of being in the hospital frequently for respiratory infections. IgG checked and 497, will need follow up with OP infectious disease for further evaluation and likely IVIG treatment. - Time Spent With Patient Total time spent is greater than 50% in coordination of care (as documented) at patient's floor/unit and/or counseling patient: less than 15 minutes
[2017-10-11] MEDS: CEFTRIAXONE 1 G in NS 100 ML IV SCH (12:22)
--- NOTE | 2017-10-11 15:12 | Cardiology Progress Note ---
<Mirian Moran - Last Filed: 10/15/17 09:39> Subjective Principal diagnosis: NSTEMI Type II, Influenza Interval history: Marlyn is seen in follow up for influenza, NSTEMI type II. She is in her bed and coughing frequently. She reports needed increased O2 overnight. She denies chest pain or pressure. Exam Vital signs: Temperature 97.9 F 10/11/17 08:48 Pulse Rate 80 10/11/17 08:48 Respiratory Rate 18 10/11/17 14:17 Blood Pressure 121/77 10/11/17 08:48 Pulse Oximetry 97 10/11/17 14:17 - Constitutional mild distress, well nourished, cooperative - Routine HEENT Exam Head: Present: normocephalic ENT: Present: mucous membranes moist - Routine Neck Exam Absent: JVD, carotid bruit - Routine Chest/Breast/Axilla Exam Chest wall: Absent: tenderness - Routine Respiratory Exam Present: dyspnea, decreased breath sounds, wheezes. Absent: CTA bilaterally - Routine Cardiovascular Exam Present: RRR, no murmur - Routine Abdominal Exam Present: soft, normoactive bowel sounds - Routine Extremities Exam Present: no edema - Routine Skin Exam Present: intact, dry, warm - Routine Neurological Exam Present: alert, oriented X3 - Routine Psychiatric Exam Present: normal affect, normal thought process - Additional findings Additional findings: Albuterol Sulfate (Proventil Neb (0.083%)) 2.5 mg AEROSOL 1-2XD PRN PRN Reason: Shortness of air/wheezing Last Admin: 10/07/17 23:02 Dose: 2.5 mg Albuterol/Ipratropium (Duoneb) 3 ml AEROSOL Q4HR [facility] Last Admin: 10/11/17 14:17 Dose: 3 ml Aspirin (Asa) 325 mg PO HS [facility] Last Admin: 10/10/17 20:58 Dose: 325 mg Atorvastatin Calcium (Lipitor) 20 mg PO HS [facility] Last Admin: 10/10/17 20:58 Dose: 20 mg Budesonide (Pulmicort Inhalation) 0.5 mg AEROSOL RTBID [facility] Last Admin: 10/11/17 09:10 Dose: 0.5 mg Enoxaparin Sodium (Lovenox) 40 mg SQ DAILY [facility] Last Admin: 10/11/17 08:45 Dose: 40 mg Guaifenesin (Mucinex) 400 mg PO BID [facility] Last Admin: 10/11/17 08:45 Dose: 400 mg Ceftriaxone Sodium 1 g/ Sodium (Chloride) 50 mls @ 200 mls/hr IV Q24H [facility] Insulin Aspart (Novolog) 1 - 5 unit SQ SS PRN; Protocol PRN Reason: Hyperglycemia Last Admin: 10/10/17 18:18 Dose: 1 unit Levothyroxine Sodium (Synthroid) 25 mcg PO ACB [facility] Last Admin: 10/11/17 06:11 Dose: 25 mcg Magnesium Hydroxide (Mom) 30 ml PO DAILY PRN PRN Reason: Constipation Last Admin: 10/11/17 09:10 Dose: 30 ml Melatonin (Melatonin) 5 mg PO HS PRN PRN Reason: Insomnia Metformin HCl (Glucophage) 500 mg PO BIDWM [facility] Last Admin: 10/11/17 08:45 Dose: 500 mg Montelukast Sodium (Singulair) 10 mg PO HS [facility] Last Admin: 10/10/17 20:58 Dose: 10 mg Morphine Sulfate (Morphine Sulfate Inj) 2 mg IVP Q10M PRN PRN Reason: Chest pain Last Admin: 10/09/17 17:41 Dose: 2 mg Nitroglycerin (Nitrostat) 0.4 mg SL Q5M PRN PRN Reason: Chest pain Ondansetron HCl (Zofran) 4 mg IVP Q6H PRN PRN Reason: Nausea &/or vomiting Oseltamivir Phosphate (Tamiflu) 75 mg PO BID [facility] Stop: 10/13/17 09:01 Last Admin: 10/11/17 08:45 Dose: 75 mg Oxycodone/Acetaminophen (Percocet 10/325) 1 - 2 tab PO Q4HR PRN PRN Reason: Pain Last Admin: 10/11/17 09:10 Dose: 2 tab Pantoprazole Sodium (Protonix Tab) 40 mg PO ACB [facility] Last Admin: 10/11/17 06:11 Dose: 40 mg Prednisone (Deltasone) 10 mg PO BIDWM [facility] Last Admin: 10/11/17 08:45 Dose: 10 mg Ropinirole HCl (Requip) 1 mg PO HS [facility] Last Admin: 10/10/17 20:58 Dose: 1 mg Results 10/10/17 09:38 10/11/17 11:05 Comprehensive Metabolic Panel 10/11/17 Range/Units 11:05 Sodium 136 (134-144) MEQ/L Potassium 3.8 (3.6-5) MEQ/L Chloride 93 L (98-107) MEQ/L Carbon Dioxide 30 (22-30) MEQ/L BUN 33.0 H D (7-17) MG/DL Creatinine 1.4 H D (0.7-1.2) MG/DL Glucose 123 H (65-110) MG/DL Calcium 9.3 (8.4-10.2) MG/DL Intake and Output 10/11/17 10/11/17 10/11/17 06:59 14:59 22:59 Intake Total 160 / 160 100 / 100 Output Total 750 / 750 Balance -590 / -590 100 / 100 Intake: IV 100 / 100 Ceftriaxone 1 g In Ns 100 ml @ 100 / 100 200 mls/hr IV Q24H [facility] Rx#: [id number] Oral 160 / 160 Output: Urine 750 / 750 Other: Urine Appearance Clear Urine Color Dark Yellow Weight 243 lb 9.773 oz Patient Weight 10/12/17 06:59 Weight 243 lb 9.773 oz Assessment and Plan - Assessment and Plan (1) Acute on chronic respiratory failure with hypoxia Status: Acute (2) Influenza A Status: Acute (3) COPD with acute exacerbation Status: Acute (4) Non-ST elevation myocardial infarction (NSTEMI), type 2 Status: Acute - Assessment and Plan 10/08/17 Acute on Chronic respiratory failure with hypoxia: - Tachypneic, O2 at 2L/NC - Influenza A + - chest X-ray - Consult Pulmonary ( Thank you Dr. Hernadez for your assistance) NSTEMI, Type II: - Serial troponin has been flat, continue to trend - 1) 0.261, 2) 0.321, 3) 0.218 - Had LHC on 08/02/17 which showed No significant obstructive coronary artery disease. Normal LV systolic function with ejection fraction of about 65%. - 2D echo 10/09/17 Lovenox for DVT prophylaxis Remains on O2 at 1L/NC, C Pap at night 10/10/17 Continue plan per pulmonary until they feel comfortable with discharge Continue to improve slowly, remains on O2 10/11/17 Increased O2 requirements today. Wheezes improved. Hospital Course Summary Disclaimer: The visit summary below is not to be considered part of the above Progress Note. <Abdiel Mcdermott - Last Filed: 10/16/17 11:36> Exam Vital signs: Temperature 98.2 F 10/15/17 15:23 Pulse Rate 88 10/15/17 16:00 Respiratory Rate 24 10/15/17 15:23 Blood Pressure 126/65 10/15/17 15:23 Pulse Oximetry 94 10/15/17 15:23 Results 10/15/17 04:14 10/15/17 04:14 Assessment and Plan - Assessment and Plan (1) Acute on chronic respiratory failure with hypoxia Status: Acute (2) Influenza A Status: Acute (3) COPD with acute exacerbation Status: Acute (4) Non-ST elevation myocardial infarction (NSTEMI), type 2 Status: Acute - Attestation Attestation Narrative: 10/16/17 11:36 Recommendation After examining the patient I agree with the above assessment. I am involved in the formulation of the patient's plan of care. Hospital Course Summary Disclaimer: The visit summary below is not to be considered part of the above Progress Note.
[2017-10-11] MEDS: INSULIN ASPART 100unit/ml INJECTION SQ PRN (18:00)
[2017-10-11] MEDS: ASPIRIN 325 MG TABLET PO SCH (21:13)
[2017-10-11] MEDS: ROPINIROLE 1 MG TABLET PO SCH (21:14)
[2017-10-11] MEDS: MONTELUKAST 10 MG TABLET PO SCH (21:14)
[2017-10-11] MEDS: ATORVASTATIN 20 MG TABLET PO SCH (21:14)
[2017-10-12] MEDS: ALBUTEROL/IPRATROPIUM 2.5mg-0.5mg/3ml NEB AEROSOL SCH ×6 (03:17→23:35)
[2017-10-12] MEDS: LEVOTHYROXINE 25 MCG TABLET PO SCH (06:10)
[2017-10-12] MEDS: PANTOPRAZOLE 40 MG TABLET PO SCH (06:10)
[2017-10-12] MEDS: ENOXAPARIN 40 MG/0.4 ML INJECTION SQ SCH (08:49)
[2017-10-12] MEDS: GUAIFENESIN 400MG TABLET PO SCH ×2 (08:49→20:42)
[2017-10-12] MEDS: METFORMIN 500 MG TABLET PO SCH ×2 (08:50→18:25)
[2017-10-12] MEDS: PredniSONE 10 MG TABLET PO SCH ×2 (08:50→18:25)
--- NOTE | 2017-10-12 10:38 | Cardiology Progress Note ---
<Yamileth Erickson - Last Filed: 10/12/17 12:35> Subjective Principal diagnosis: NSTEMI Type II, Influenza Interval history: Marlyn is seen in follow up for influenza, NSTEMI type II. She is in her bed and coughing frequently. She reports needed increased O2 overnight. She denies chest pain or pressure. Light activity inducing coughing and air hunger. I assisted her up to the bedside with her lunch tray. Reports appetite is good. Exam Vital signs: Temperature 97 F 10/12/17 08:02 Pulse Rate 96 10/12/17 08:02 Respiratory Rate 16 10/12/17 08:02 Blood Pressure 130/64 10/12/17 08:02 Pulse Oximetry 95 10/12/17 08:02 - Constitutional no acute distress, obese - Routine HEENT Exam Head: Present: normocephalic, atraumatic Eye: Present: PERRL, conjunctivae pink ENT: Present: mucous membranes moist - Routine Neck Exam Absent: JVD, carotid bruit - Routine Cardiovascular Exam Present: RRR. Absent: JVD - Routine Abdominal Exam Present: soft, normoactive bowel sounds, non distended - Routine Extremities Exam Present: no edema - Routine Skin Exam Present: intact - Routine Neurological Exam Present: alert, oriented X3, moving all extremities, hearing grossly intact - Routine Psychiatric Exam Present: normal affect, normal thought process, cooperative Results 10/12/17 04:35 10/12/17 04:35 CBC 10/12/17 Range/Units 04:35 WBC 8.7 (4.5-11.0) T/MM3 RBC 4.11 (4.00-5.20) M/MM3 Hgb 12.0 (12-16) GM/DL Hct 38.6 (36-46) % Plt Count 246 (130-400) T/MM3 Comprehensive Metabolic Panel 10/11/17 10/12/17 Range/Units 11:05 04:35 Sodium 136 135 (134-144) MEQ/L Potassium 3.8 5.0 D (3.6-5) MEQ/L Chloride 93 L 93 L (98-107) MEQ/L Carbon Dioxide 30 33 H (22-30) MEQ/L BUN 33.0 H D 39.0 H (7-17) MG/DL Creatinine 1.4 H D 1.3 H D (0.7-1.2) MG/DL Glucose 123 H 133 H (65-110) MG/DL Calcium 9.3 9.3 (8.4-10.2) MG/DL Intake and Output 10/11/17 10/12/17 10/12/17 22:59 06:59 14:59 Intake Total 450 / 450 Output Total 200 / 200 500 / 500 Balance 250 / 250 -500 / -500 Intake: Oral 450 / 450 Output: Urine 200 / 200 500 / 500 Other: Urine Appearance Clear Clear Urine Color Dark Yellow Bright Yellow Weight 110.2 kg Patient Weight 10/13/17 06:59 Weight 110.2 kg - Imaging and Cardiology Imaging & Cardiology Narrative: 10/12/17 12:40 Tele SR 80's Assessment and Plan - Assessment and Plan (1) Acute on chronic respiratory failure with hypoxia Status: Acute (2) Influenza A Status: Acute (3) COPD with acute exacerbation Status: Acute (4) Non-ST elevation myocardial infarction (NSTEMI), type 2 Status: Acute - Assessment and Plan 10/08/17 Acute on Chronic respiratory failure with hypoxia: - Tachypneic, O2 at 2L/NC - Influenza A + - chest X-ray - Consult Pulmonary ( Thank you Dr. Hernadez for your assistance) NSTEMI, Type II: - Serial troponin has been flat, continue to trend - 1) 0.261, 2) 0.321, 3) 0.218 - Had LHC on 08/02/17 which showed No significant obstructive coronary artery disease. Normal LV systolic function with ejection fraction of about 65%. - 2D echo 10/09/17 Lovenox for DVT prophylaxis Remains on O2 at 1L/NC, C Pap at night 10/10/17 Continue plan per pulmonary until they feel comfortable with discharge Continue to improve slowly, remains on O2 10/11/17 Increased O2 requirements today. Wheezes improved. 10/02/17 Continue plan per pulmonology, defer discharge direction to them Improving slowly, continues to require supplemental O2, lungs with diffuse wheezes. Lovenox DVT prophylaxis. Cr trending up since admission, lasix discontinued yesterday, continue to follow Chest X-ray today shows improved lung cooper, nearly resolved opacities. Hospital Course Summary Disclaimer: The visit summary below is not to be considered part of the above Progress Note. <Abdiel Mcdermott - Last Filed: 10/16/17 11:23> Exam Vital signs: Temperature 98.2 F 10/15/17 15:23 Pulse Rate 88 10/15/17 16:00 Respiratory Rate 24 10/15/17 15:23 Blood Pressure 126/65 10/15/17 15:23 Pulse Oximetry 94 10/15/17 15:23 Results 10/15/17 04:14 10/15/17 04:14 Assessment and Plan - Assessment and Plan (1) Acute on chronic respiratory failure with hypoxia Status: Acute (2) Influenza A Status: Acute (3) COPD with acute exacerbation Status: Acute (4) Non-ST elevation myocardial infarction (NSTEMI), type 2 Status: Acute - Attestation Attestation Narrative: 10/16/17 11:23 Recommendation After examining the patient I agree with the above assessment. I am involved in the formulation of the patient's plan of care. Hospital Course Summary Disclaimer: The visit summary below is not to be considered part of the above Progress Note.
[2017-10-12] MEDS: BUDESONIDE INH.SOLN 0.5mg/2ml NEB AEROSOL SCH ×2 (11:53→19:35)
--- NOTE | 2017-10-12 12:18 | XRay Report ---
Indication: infiltrates Procedure: XR chest 2V: Encounter: Subsequent Comparison: 10/09/2017, 10/08/2017 Technique: PA and lateral radiographs of the chest were obtained. Findings: Life support devices: Unchanged left pectoral dual-chamber pacer device. Lungs and airways: Normal lung volumes. Interval improvement to near complete resolution of the previously noted patchy airspace opacities. Normal pulmonary vasculature. Pleura: No pleural effusion or pneumothorax. Heart and mediastinum: Aortic atherosclerosis. The cardiomediastinal silhouette is otherwise within normal limits. Osseous structures and soft tissues: No acute osseous abnormality is seen. Impression: Interval improvement to near complete resolution of the previously noted patchy airspace opacities. .
[2017-10-12] MEDS ORDERED: CEFTRIAXONE 1 G INJECTION IVP SCH (13:00)
[2017-10-12] MEDS: CEFTRIAXONE 1 G in NS 50 ML IV SCH (13:52)
[2017-10-12] MEDS: NS FLUSH BAG 500ml IV PRN (13:53)
[2017-10-12] MEDS: ALBUTEROL 2.5mg/3ml (0.083%) NEB AEROSOL PRN (19:35)
[2017-10-12] MEDS: MONTELUKAST 10 MG TABLET PO SCH (20:42)
[2017-10-12] MEDS: ASPIRIN 325 MG TABLET PO SCH (20:42)
[2017-10-12] MEDS: ROPINIROLE 1 MG TABLET PO SCH (20:42)
[2017-10-12] MEDS: ATORVASTATIN 20 MG TABLET PO SCH (20:42)
[2017-10-13] MEDS: ALBUTEROL/IPRATROPIUM 2.5mg-0.5mg/3ml NEB AEROSOL SCH ×5 (03:02→19:00)
[2017-10-13] MEDS: LEVOTHYROXINE 25 MCG TABLET PO SCH (06:09)
[2017-10-13] MEDS: PANTOPRAZOLE 40 MG TABLET PO SCH (06:09)
[2017-10-13] MEDS: BUDESONIDE INH.SOLN 0.5mg/2ml NEB AEROSOL SCH ×2 (07:57→19:00)
[2017-10-13] MEDS: ENOXAPARIN 40 MG/0.4 ML INJECTION SQ SCH (09:31)
[2017-10-13] MEDS: PredniSONE 10 MG TABLET PO SCH ×2 (09:32→18:13)
[2017-10-13] MEDS: METFORMIN 500 MG TABLET PO SCH ×2 (09:32→18:13)
[2017-10-13] MEDS: GUAIFENESIN 400MG TABLET PO SCH ×2 (09:32→20:07)
[2017-10-13] MEDS: Oxycodone *IR* 5 MG TABLET PO PRN ×2 (11:11→22:01)
[2017-10-13] MEDS: CEFTRIAXONE 1 G in NS 50 ML IV SCH (12:30)
--- NOTE | 2017-10-13 16:36 | Cardiology Progress Note ---
<Yamileth Erickson - Last Filed: 10/13/17 17:20> Subjective Principal diagnosis: NSTEMI Type II, Influenza Interval history: Marlyn is seen in follow up for influenza, NSTEMI type II. She is up to the chair at bedside, reports feeling mildly improved. She continues to requires supplemental O2 at 1L/NC; RN reports attempting to wean O2 to RA, she lasted 1 hour, sats dropped below 90 and required return to O2. She reports coughing all night and with any exertion. She voices concern over early dismissal and relapse requiring readmission. She had a BM today after 4 days without, will start bowel maintenance. Exam Vital signs: Temperature 97.2 F 10/13/17 15:35 Pulse Rate 77 10/13/17 15:35 Respiratory Rate 14 10/13/17 15:35 Blood Pressure 121/57 10/13/17 15:35 Pulse Oximetry 95 10/13/17 15:35 - Constitutional no acute distress, well developed - Routine HEENT Exam Head: Present: normocephalic, atraumatic Eye: Present: PERRL, conjunctivae pink ENT: Present: mucous membranes moist - Routine Neck Exam Absent: JVD, carotid bruit - Routine Respiratory Exam Present: dyspnea, rhonchi. Absent: wheezes - Routine Cardiovascular Exam Present: RRR, no murmur - Routine Abdominal Exam Present: soft, normoactive bowel sounds Results 10/13/17 16:44 10/13/17 16:44 Intake and Output 10/13/17 10/13/17 10/13/17 06:59 14:59 22:59 Intake Total 900 / 900 Output Total 100 / 100 275 / 275 Balance -100 / -100 625 / 625 Intake: IV 50 / 50 Ceftriaxone 1 g In Ns 50 ml @ 50 / 50 200 mls/hr IV Q24H VERNA Rx#: [id number] Oral 850 / 850 Output: Urine 100 / 100 275 / 275 Other: Urine Appearance Clear Clear Urine Color Yellow Yellow Urine Odor Normal Normal Size of Bowel Movement Small # Voids 1 # Bowel Movements 1 Weight 111.25 kg Patient Weight 10/14/17 06:59 Weight 111.25 kg Laboratory Results - last 24 hr 10/12/17 10/12/17 10/12/17 11:40 17:08 20:59 WBC RBC Hgb Hct MCV MCH MCHC RDW Std Deviation Plt Count MPV Immature Gran % (Auto) Neut % (Auto) Lymph % (Auto) Ness % (Auto) Eos % (Auto) Baso % (Auto) Neut # (Auto) Lymph # (Auto) Ness # (Auto) Eos # (Auto) Baso # (Auto) Abs Immat Gran (auto) Turbidity Sodium Potassium Chloride Carbon Dioxide Anion Gap BUN Creatinine GFR Calculation BUN/Creatinine Ratio Glucose Glucometer 148 132 146 Calculated Osmolality Calcium Total Bilirubin Icterus Index AST ALT Alkaline Phosphatase Total Protein Albumin Globulin Albumin/Globulin Ratio Specimen Hemolysis 10/13/17 10/13/17 10/13/17 06:08 11:06 16:44 WBC 9.4 RBC 4.02 Hgb 11.9 L Hct 38.0 MCV 94.5 MCH 29.6 MCHC 31.3 RDW Std Deviation 47.1 Plt Count 276 MPV 10.7 Immature Gran % (Auto) 1.3 H Neut % (Auto) 78.9 H Lymph % (Auto) 11.1 L Ness % (Auto) 8.1 Eos % (Auto) 0.4 Baso % (Auto) 0.2 Neut # (Auto) 7.4 Lymph # (Auto) 1.1 Ness # (Auto) 0.8 Eos # (Auto) 0.0 Baso # (Auto) 0.0 Abs Immat Gran (auto) 0.12 H Turbidity Sodium Potassium Chloride Carbon Dioxide Anion Gap BUN Creatinine GFR Calculation BUN/Creatinine Ratio Glucose Glucometer 122 148 Calculated Osmolality Calcium Total Bilirubin Icterus Index AST ALT Alkaline Phosphatase Total Protein Albumin Globulin Albumin/Globulin Ratio Specimen Hemolysis 10/13/17 16:44 WBC RBC Hgb Hct MCV MCH MCHC RDW Std Deviation Plt Count MPV Immature Gran % (Auto) Neut % (Auto) Lymph % (Auto) Ness % (Auto) Eos % (Auto) Baso % (Auto) Neut # (Auto) Lymph # (Auto) Ness # (Auto) Eos # (Auto) Baso # (Auto) Abs Immat Gran (auto) Turbidity < 20 Sodium 134 Potassium 5.3 H Chloride 95 L Carbon Dioxide 31 H Anion Gap 8 BUN 34.0 H Creatinine 1.2 GFR Calculation 42 BUN/Creatinine Ratio 28 H Glucose 149 H Glucometer Calculated Osmolality 269 Calcium 9.7 Total Bilirubin < 0.10 L Icterus Index < 2 AST 17 ALT 33 Alkaline Phosphatase 51 Total Protein 6.3 Albumin 3.8 Globulin 2.5 Albumin/Globulin Ratio 1.5 Specimen Hemolysis < 15 Assessment and Plan - Assessment and Plan (1) Acute on chronic respiratory failure with hypoxia Status: Acute (2) Influenza A Status: Acute (3) COPD with acute exacerbation Status: Acute (4) Non-ST elevation myocardial infarction (NSTEMI), type 2 Status: Acute - Assessment and Plan 10/08/17 Acute on Chronic respiratory failure with hypoxia: - Tachypneic, O2 at 2L/NC - Influenza A + - chest X-ray - Consult Pulmonary ( Thank you Dr. Hernadez for your assistance) NSTEMI, Type II: - Serial troponin has been flat, continue to trend - 1) 0.261, 2) 0.321, 3) 0.218 - Had LHC on 08/02/17 which showed No significant obstructive coronary artery disease. Normal LV systolic function with ejection fraction of about 65%. - 2D echo 10/09/17 Lovenox for DVT prophylaxis Remains on O2 at 1L/NC, C Pap at night 10/10/17 Continue plan per pulmonary until they feel comfortable with discharge Continue to improve slowly, remains on O2 10/11/17 Increased O2 requirements today. Wheezes improved. 10/12/17 Continue plan per pulmonology, defer discharge direction to them Improving slowly, continues to require supplemental O2, lungs with diffuse wheezes. Lovenox DVT prophylaxis. Cr trending up since admission, lasix discontinued yesterday, continue to follow Chest X-ray today shows improved lung cooper, nearly resolved opacities. 10/13/17 Continuing to improve slowly, less coughing, wheezes improved today. continues to require supplemental O2 1L/nc. Pt not on continuous home O2. Cr trending down, K up to 5.3 today. Lasix and potassium dc'd 2 days ago, check an ECG and continue to follow labs. Pt had a BM, ordered scheduled miralax. She is taking Oxycodone for cough suppression. Sepsis Assessment - Evaluation Severe Sepsis: none seen Hospital Course Summary Disclaimer: The visit summary below is not to be considered part of the above Progress Note. <Abdiel Mcdermott - Last Filed: 10/16/17 11:23> Exam Vital signs: Temperature 98.2 F 10/15/17 15:23 Pulse Rate 88 10/15/17 16:00 Respiratory Rate 24 10/15/17 15:23 Blood Pressure 126/65 10/15/17 15:23 Pulse Oximetry 94 10/15/17 15:23 Results 10/15/17 04:14 10/15/17 04:14 Assessment and Plan - Assessment and Plan (1) Acute on chronic respiratory failure with hypoxia Status: Acute (2) Influenza A Status: Acute (3) COPD with acute exacerbation Status: Acute (4) Non-ST elevation myocardial infarction (NSTEMI), type 2 Status: Acute - Attestation Attestation Narrative: 10/16/17 11:23 Recommendation After examining the patient I agree with the above assessment. I am involved in the formulation of the patient's plan of care. Hospital Course Summary Disclaimer: The visit summary below is not to be considered part of the above Progress Note.
[2017-10-13] MEDS: ASPIRIN 325 MG TABLET PO SCH (20:07)
[2017-10-13] MEDS: ATORVASTATIN 20 MG TABLET PO SCH (20:07)
[2017-10-13] MEDS: POLYETHYL GLYCOL 3350 17gm PACKET PO SCH (20:07)
[2017-10-13] MEDS: MONTELUKAST 10 MG TABLET PO SCH (20:07)
[2017-10-13] MEDS: ROPINIROLE 1 MG TABLET PO SCH (20:08)
[2017-10-13] MEDS: INSULIN ASPART 100unit/ml INJECTION SQ PRN (20:17)
[2017-10-14] MEDS: ALBUTEROL/IPRATROPIUM 2.5mg-0.5mg/3ml NEB AEROSOL SCH ×6 (00:10→21:11)
[2017-10-14] MEDS: PANTOPRAZOLE 40 MG TABLET PO SCH (05:49)
[2017-10-14] MEDS: LEVOTHYROXINE 25 MCG TABLET PO SCH (05:49)
[2017-10-14] MEDS: INSULIN ASPART 100unit/ml INJECTION SQ PRN ×2 (05:53→21:31)
[2017-10-14] MEDS: BUDESONIDE INH.SOLN 0.5mg/2ml NEB AEROSOL SCH ×2 (07:35→21:11)
[2017-10-14] MEDS: ENOXAPARIN 40 MG/0.4 ML INJECTION SQ SCH (08:53)
[2017-10-14] MEDS: METFORMIN 500 MG TABLET PO SCH ×2 (08:53→17:28)
[2017-10-14] MEDS: PredniSONE 10 MG TABLET PO SCH ×2 (08:53→17:28)
[2017-10-14] MEDS: POLYETHYL GLYCOL 3350 17gm PACKET PO SCH ×2 (08:53→20:55)
[2017-10-14] MEDS: GUAIFENESIN 400MG TABLET PO SCH ×2 (08:53→20:56)
[2017-10-14] MEDS ORDERED: FUROSEMIDE 40 MG/4 ML INJECTION IVP ONE (09:45)
--- NOTE | 2017-10-14 11:56 | Pulmonology Progress Note ---
Subjective Principal diagnosis: NSTEMI Type II, Influenza Interval history: Pt in chair, states she feels she is getting better each day. + cough with some sputum, + wheezing still but improving. States she does have SOB and cough with ambulation.. Exam Vital signs: Temperature 98.3 F 10/14/17 07:25 Pulse Rate 85 10/14/17 10:02 Respiratory Rate 18 10/14/17 11:28 Blood Pressure 131/68 10/14/17 07:25 Pulse Oximetry 96 10/14/17 11:29 - Constitutional no acute distress, obese - Routine HEENT Exam Head: Present: normocephalic, atraumatic Eye: Present: EOMI, PERRL ENT: Present: mucous membranes moist - Routine Neck Exam Present: supple, full ROM, trachea midline - Routine Respiratory Exam Present: decreased breath sounds, wheezes Comments: faint wheezes - Routine Cardiovascular Exam Present: RRR, S1, S2, no murmur - Routine Abdominal Exam Present: normoactive bowel sounds - Routine Extremities Exam Present: no edema, non tender, full ROM - Routine Back/Spine/Pelvis Exam Back/Spine: Present: full ROM - Routine Skin Exam Present: intact, dry - Routine Neurological Exam Present: alert, oriented X3, CN II-XII intact - Routine Psychiatric Exam Present: normal affect, normal thought process, good judgment Assessment and Plan - Assessment and Plan Acute Hypoxic Respiratory Failure Influenza A - on tamiflu COPD exacerbation JOSELITO - Home Cpap [facility] NSTEMI hypogammaglobulinemia Influenza Plan: Pt currently on RA, No O2 at home, home cpap at [facility]. On pulmicort BID and A/A q4hr. On prednisone 20mg daily for wheezing decrease to daily. S/P Tamiflu, CXR 10/12/17 shows resolution in RLL infiltrates, on rocephin. Afebrile and no WBC noted at this time. C/o of being in the hospital frequently for respiratory infections. IgG checked and 497, will need follow up with OP infectious disease for further evaluation and likely IVIG treatment. - Time Spent With Patient Total time spent is greater than 50% in coordination of care (as documented) at patient's floor/unit and/or counseling patient: less than 15 minutes
[2017-10-14] MEDS: NS FLUSH BAG 500ml IV PRN (12:48)
[2017-10-14] MEDS: CEFTRIAXONE 1 G in NS 50 ML IV SCH (12:49)
[2017-10-14] MEDS: Oxycodone *IR* 5 MG TABLET PO PRN (13:30)
[2017-10-14] MEDS: MONTELUKAST 10 MG TABLET PO SCH (20:55)
[2017-10-14] MEDS: ASPIRIN 325 MG TABLET PO SCH (20:55)
[2017-10-14] MEDS: ATORVASTATIN 20 MG TABLET PO SCH (20:55)
[2017-10-14] MEDS: ROPINIROLE 1 MG TABLET PO SCH (20:56)
[2017-10-15] MEDS: ALBUTEROL/IPRATROPIUM 2.5mg-0.5mg/3ml NEB AEROSOL SCH ×5 (01:00→17:29)
[2017-10-15] MEDS: PANTOPRAZOLE 40 MG TABLET PO SCH (05:53)
[2017-10-15] MEDS: LEVOTHYROXINE 25 MCG TABLET PO SCH (05:53)
[2017-10-15] MEDS: BUDESONIDE INH.SOLN 0.5mg/2ml NEB AEROSOL SCH (07:50)
--- NOTE | 2017-10-15 07:59 | Cardiology Progress Note ---
<Mirian Moran - Last Filed: 10/15/17 09:40> Subjective Principal diagnosis: NSTEMI Type II, Influenza Interval history: 10/14/17 Marlyn is seen in follow up for influenza, NSTEMI type II. She is in her bed on room air, reports frequent and severe cough. She denies chest pain or pressure. Exam Vital signs: Temperature 96.3 F L 10/15/17 07:47 Pulse Rate 84 10/15/17 07:47 Respiratory Rate 18 10/15/17 07:47 Blood Pressure 141/76 H 10/15/17 07:47 Pulse Oximetry 95 10/15/17 07:47 - Constitutional no acute distress, well nourished, cooperative - Routine HEENT Exam Head: Present: normocephalic ENT: Present: mucous membranes moist - Routine Neck Exam Absent: JVD, carotid bruit - Routine Chest/Breast/Axilla Exam Chest wall: Absent: tenderness - Routine Respiratory Exam Present: decreased breath sounds, wheezes. Absent: CTA bilaterally - Routine Cardiovascular Exam Present: RRR, no murmur - Routine Abdominal Exam Present: soft, normoactive bowel sounds - Routine Extremities Exam Present: no edema - Routine Skin Exam Present: intact, dry, warm - Routine Neurological Exam Present: alert, oriented X3 Results 10/15/17 04:14 10/15/17 04:14 CBC 10/15/17 Range/Units 04:14 WBC 8.1 (4.5-11.0) T/MM3 RBC 4.29 (4.00-5.20) M/MM3 Hgb 12.5 (12-16) GM/DL Hct 40.2 (36-46) % Plt Count 303 (130-400) T/MM3 Comprehensive Metabolic Panel 10/14/17 10/15/17 Range/Units 11:58 04:14 Sodium 133 L 135 (134-144) MEQ/L Potassium 4.4 D 4.7 (3.6-5) MEQ/L Chloride 94 L D 96 L (98-107) MEQ/L Carbon Dioxide 28 31 H (22-30) MEQ/L BUN 29.0 H 30.0 H (7-17) MG/DL Creatinine 1.0 1.0 (0.7-1.2) MG/DL Glucose 84 117 H (65-110) MG/DL Calcium 9.8 10.0 (8.4-10.2) MG/DL Intake and Output 10/14/17 10/15/17 10/15/17 22:59 06:59 14:59 Intake Total 780 / 780 200 / 200 Output Total 225 / 225 800 / 800 225 / 225 Balance 555 / 555 -600 / -600 -225 / -225 Intake: Oral 780 / 780 200 / 200 Output: Urine 225 / 225 800 / 800 225 / 225 Other: Urine Appearance Clear Clear Clear Urine Color Yellow Yellow Yellow Urine Odor Normal # Incontinent Voids 1 Weight 248 lb 0.321 oz Patient Weight 10/16/17 06:59 Weight 248 lb 0.321 oz Assessment and Plan - Assessment and Plan (1) Acute on chronic respiratory failure with hypoxia Status: Acute (2) Influenza A Status: Acute (3) COPD with acute exacerbation Status: Acute (4) Non-ST elevation myocardial infarction (NSTEMI), type 2 Status: Acute - Assessment and Plan 10/08/17 Acute on Chronic respiratory failure with hypoxia: - Tachypneic, O2 at 2L/NC - Influenza A + - chest X-ray - Consult Pulmonary ( Thank you Dr. Hernadez for your assistance) NSTEMI, Type II: - Serial troponin has been flat, continue to trend - 1) 0.261, 2) 0.321, 3) 0.218 - Had LHC on 08/02/17 which showed No significant obstructive coronary artery disease. Normal LV systolic function with ejection fraction of about 65%. - 2D echo 10/09/17 Lovenox for DVT prophylaxis Remains on O2 at 1L/NC, C Pap at night 10/10/17 Continue plan per pulmonary until they feel comfortable with discharge Continue to improve slowly, remains on O2 10/11/17 Increased O2 requirements today. Wheezes improved. 10/12/17 Continue plan per pulmonology, defer discharge direction to them Improving slowly, continues to require supplemental O2, lungs with diffuse wheezes. Lovenox DVT prophylaxis. Cr trending up since admission, lasix discontinued yesterday, continue to follow Chest X-ray today shows improved lung cooper, nearly resolved opacities. 10/13/17 Continuing to improve slowly, less coughing, wheezes improved today. continues to require supplemental O2 1L/nc. Pt not on continuous home O2. Cr trending down, K up to 5.3 today. Lasix and potassium dc'd 2 days ago, check an ECG and continue to follow labs. Pt had a BM, ordered scheduled miralax. She is taking Oxycodone for cough suppression. 10/14/17 Hope to discharge soon when discharge needs arranged for home O2 if required. RT to evaluate for home O2 needs. Hospital Course Summary Disclaimer: The visit summary below is not to be considered part of the above Progress Note. <Abdiel Mcdermott - Last Filed: 10/16/17 11:37> Exam Vital signs: Temperature 98.2 F 10/15/17 15:23 Pulse Rate 88 10/15/17 16:00 Respiratory Rate 24 10/15/17 15:23 Blood Pressure 126/65 10/15/17 15:23 Pulse Oximetry 94 10/15/17 15:23 Results 10/15/17 04:14 10/15/17 04:14 Assessment and Plan - Assessment and Plan (1) Acute on chronic respiratory failure with hypoxia Status: Acute (2) Influenza A Status: Acute (3) COPD with acute exacerbation Status: Acute (4) Non-ST elevation myocardial infarction (NSTEMI), type 2 Status: Acute - Attestation Attestation Narrative: 10/16/17 11:37 Recommendation After examining the patient I agree with the above assessment. I am involved in the formulation of the patient's plan of care. Hospital Course Summary Disclaimer: The visit summary below is not to be considered part of the above Progress Note.
[2017-10-15 08:08] VITALS: RESP 24
[2017-10-15] MEDS: METFORMIN 500 MG TABLET PO SCH ×2 (10:04→17:48)
[2017-10-15] MEDS: PredniSONE 10 MG TABLET PO SCH ×2 (10:04→17:48)
[2017-10-15] MEDS: POLYETHYL GLYCOL 3350 17gm PACKET PO SCH (10:04)
[2017-10-15] MEDS: GUAIFENESIN 400MG TABLET PO SCH (10:04)
[2017-10-15] MEDS: ENOXAPARIN 40 MG/0.4 ML INJECTION SQ SCH (10:04)
--- NOTE | 2017-10-15 11:44 | Pulmonology Progress Note ---
<April,Erica D - Last Filed: 10/15/17 11:40> Subjective Principal diagnosis: NSTEMI Type II, Influenza Interval history: Pt in bed, states she is feeling better. Still with cough during ambulation, some sputum noted. Overall feeling like she is close to going home. Exam Vital signs: Temperature 96.3 F L 10/15/17 07:47 Pulse Rate 88 10/15/17 09:45 Respiratory Rate 24 10/15/17 11:05 Blood Pressure 141/76 H 10/15/17 07:47 Pulse Oximetry 98 10/15/17 11:05 - Constitutional no acute distress, obese, cooperative - Routine HEENT Exam Head: Present: normocephalic, atraumatic Eye: Present: EOMI, PERRL ENT: Present: mucous membranes moist - Routine Neck Exam Present: supple, full ROM, trachea midline - Routine Respiratory Exam Present: decreased breath sounds, wheezes Comments: faint wheeze - Routine Cardiovascular Exam Present: RRR, S1, S2, no murmur - Routine Abdominal Exam Present: soft, normoactive bowel sounds - Routine Extremities Exam Present: no edema, non tender, full ROM - Routine Back/Spine/Pelvis Exam Back/Spine: Present: full ROM - Routine Skin Exam Present: intact, dry - Routine Neurological Exam Present: alert, oriented X3, CN II-XII intact - Routine Psychiatric Exam Present: normal affect, normal thought process, good judgment Assessment and Plan - Assessment and Plan Acute Hypoxic Respiratory Failure Influenza A - on tamiflu COPD exacerbation JOSELITO - Home Cpap [facility] NSTEMI hypogammaglobulinemia Influenza Plan: Pt currently on 1L, No O2 at home, home cpap at [facility]. ExOx noted she needs O2 at 1L at rest and 2L with ambulation, CM working on this. On pulmicort BID and A/A q4hr and prednisone 10mg daily. S/P Tamiflu, CXR 10/12/17 shows resolution in RLL infiltrates, on rocephin day 4. Afebrile and no WBC noted at this time. C/o of being in the hospital frequently for respiratory infections. IgG checked and 497, will need follow up with OP infectious disease for further evaluation and likely IVIG treatment. Ok to dismiss tomorrow if remains stable. Would cont home Breo 1 puff daily, spiriva daily with neb alb QID. Would stop prednisone after 4 days and have her follow up in clinic in 3-4 weeks. - Time Spent With Patient Total time spent is greater than 50% in coordination of care (as documented) at patient's floor/unit and/or counseling patient: less than 15 minutes <Roland Hernadez - Last Filed: 10/15/17 15:02> Exam Vital signs: Temperature 96.3 F L 10/15/17 07:47 Pulse Rate 88 10/15/17 09:45 Respiratory Rate 24 10/15/17 11:05 Blood Pressure 141/76 H 10/15/17 07:47 Pulse Oximetry 98 10/15/17 11:05 Assessment and Plan (1) Acute on chronic respiratory failure with hypoxia Status: Acute Current Visit: Yes (2) Influenza A Status: Acute Current Visit: Yes (3) COPD with acute exacerbation Status: Acute Current Visit: Yes - Assessment and Plan I have personally seen and examined this patient. I agree with the assessments and recommendations noted above - Time Spent With Patient Total time spent is greater than 50% in coordination of care (as documented) at patient's floor/unit and/or counseling patient:
[2017-10-15] MEDS: CEFTRIAXONE 1 G in NS 50 ML IV SCH (13:07)
--- NOTE | 2017-10-15 13:51 | Discharge Summary ---
<Mirian Moran - Last Filed: 10/15/17 13:49> Discharge Information Date of admission: 10/08/17 10:37 Anticipated date of discharge: 10/15/17 Attending Physician: Abdiel Mcdermott MD Primary care physician: Abdulaziz Jay MD Consults: 10/08/17 08:57 Physician Consult [CONS] Routine Consulting Provider: Roland Hernadez Reason For Exam: Influenza A, pneumonia Ordering Provider has Notified Bankruptcy Processor: No Comment: NOTIFIED 0915 [facility] - Discharge Diagnosis (1) Acute on chronic respiratory failure with hypoxia Status: Acute (2) Influenza A Status: Acute (3) COPD with acute exacerbation Status: Acute (4) Non-ST elevation myocardial infarction (NSTEMI), type 2 Status: Acute NSTEMI, Type II, Influenza A - Laboratory Labs: 10/15/17 04:14 10/15/17 04:14 - Radiology Radiology: Date of Exam: 10/12/17 Ordering Provider: Kathleen Chen APRN Type of Exam(s): XR chest 2V Reason for Exam(s): infiltrates Indication: infiltrates Procedure: XR chest 2V: Encounter: Subsequent Comparison: 10/09/2017, 10/08/2017 Technique: PA and lateral radiographs of the chest were obtained. Findings: Life support devices: Unchanged left pectoral dual-chamber pacer device. Lungs and airways: Normal lung volumes. Interval improvement to near complete resolution of the previously noted patchy airspace opacities. Normal pulmonary vasculature. Pleura: No pleural effusion or pneumothorax. Heart and mediastinum: Aortic atherosclerosis. The cardiomediastinal silhouette is otherwise within normal limits. Osseous structures and soft tissues: No acute osseous abnormality is seen. Impression: Interval improvement to near complete resolution of the previously noted patchy airspace opacities. History of Present Illness HPI: Marlyn is a 87 year old female who is well known to Dr. Mcdermott with a history of aortic stenosis, carotid stenosis, HTN, HLD, DM TYPE II, COPDand [employer] PPM who was admitted to [facility] yesterday after being diagnosed with Influenza A in the ED on 10/05/17 and sent home with QID albuterol nebulizers, who returned tachypneic, coughing and hypoxic with O2 sat of 85% on room air. Her troponin was found to be elevated at 0.308 and she was transferred to [facility] in the care of her security and compliance analyst, Dr. Mcdermott. She is examined in her room on the Medical floor. She has frequent productive cough, audible wheezes and stridor. She is tachypneic and has conversational dyspnea. She reports fever, chills, fatigue, dyspnea, cough. She denies chest pain or pressure. Hospital Course This is a general summary of the patient's hospital course. For more details refer to the complete medical record. Hospital course: 10/08/17 Acute on Chronic respiratory failure with hypoxia: - Tachypneic, O2 at 2L/NC - Influenza A + - chest X-ray - Consult Pulmonary ( Thank you Dr. Hernadez for your assistance) NSTEMI, Type II: - Serial troponin has been flat, continue to trend - 1) 0.261, 2) 0.321, 3) 0.218 - Had LHC on 08/02/17 which showed No significant obstructive coronary artery disease. Normal LV systolic function with ejection fraction of about 65%. - 2D echo 10/09/17 Lovenox for DVT prophylaxis Remains on O2 at 1L/NC, C Pap at night 10/10/17 Continue plan per pulmonary until they feel comfortable with discharge Continue to improve slowly, remains on O2 10/11/17 Increased O2 requirements today. Wheezes improved. 10/12/17 Continue plan per pulmonology, defer discharge direction to them Improving slowly, continues to require supplemental O2, lungs with diffuse wheezes. Lovenox DVT prophylaxis. Cr trending up since admission, lasix discontinued yesterday, continue to follow Chest X-ray today shows improved lung cooper, nearly resolved opacities. 10/13/17 Continuing to improve slowly, less coughing, wheezes improved today. continues to require supplemental O2 1L/nc. Pt not on continuous home O2. Cr trending down, K up to 5.3 today. Lasix and potassium dc'd 2 days ago, check an ECG and continue to follow labs. Pt had a BM, ordered scheduled miralax. She is taking Oxycodone for cough suppression. 10/14/17 Hope to discharge soon when discharge needs arranged for home O2 if required. RT to evaluate for home O2 needs. Time spent with patient: 25 - 35 minutes Exam Vital signs: Temperature 96.3 F L 10/15/17 07:47 Pulse Rate 88 10/15/17 09:45 Respiratory Rate 24 10/15/17 11:05 Blood Pressure 141/76 H 10/15/17 07:47 Pulse Oximetry 98 10/15/17 11:05 Results 10/15/17 04:14 10/15/17 04:14 CBC 10/15/17 Range/Units 04:14 WBC 8.1 (4.5-11.0) T/MM3 RBC 4.29 (4.00-5.20) M/MM3 Hgb 12.5 (12-16) GM/DL Hct 40.2 (36-46) % Plt Count 303 (130-400) T/MM3 Comprehensive Metabolic Panel 10/15/17 Range/Units 04:14 Sodium 135 (134-144) MEQ/L Potassium 4.7 (3.6-5) MEQ/L Chloride 96 L (98-107) MEQ/L Carbon Dioxide 31 H (22-30) MEQ/L BUN 30.0 H (7-17) MG/DL Creatinine 1.0 (0.7-1.2) MG/DL Glucose 117 H (65-110) MG/DL Calcium 10.0 (8.4-10.2) MG/DL Intake and Output 10/14/17 10/15/17 10/15/17 22:59 06:59 14:59 Intake Total 780 / 780 200 / 200 400 / 400 Output Total 225 / 225 800 / 800 375 / 375 Balance 555 / 555 -600 / -600 25 / 25 Intake: IV 50 / 50 Ceftriaxone 1 g In Ns 50 ml @ 50 / 50 200 mls/hr IV Q24H [facility] Rx#: [id number] Oral 780 / 780 200 / 200 350 / 350 Output: Urine 225 / 225 800 / 800 375 / 375 Other: Urine Appearance Clear Clear Clear Urine Color Yellow Yellow Yellow Urine Odor Normal Stool Color Brown Stool Consistency Soft Formed Size of Bowel Movement Large # Voids 1 # Incontinent Voids 1 1 # Bowel Movements 1 Weight 248 lb 0.321 oz Patient Weight 10/16/17 06:59 Weight 248 lb 0.321 oz - Imaging and Cardiology Echo: pending EKG results: image reviewed Imaging & Cardiology Narrative: Date of Exam: 10/07/17 Type of Exam(s): US echo doppler complete DATE OF PROCEDURE October 07, 2017 This a two-dimensional echo with spectral Doppler, color-flow and M-mode. It was obtained in a patient with an elevated troponin and shortness of breath. Left atrial dimension is increased. Left ventricular end-diastolic dimension is normal. Left ventricle wall thickness is normal. LV systolic function is normal with ejection fraction of about 55%. Right atrium is normal. Right ventricle is normal. Aortic root dimension is normal. Mitral valve is morphologically normal with mild mitral regurgitation. Aortic valve shows mild fibrocalcific changes. Transaortic velocities are increased with peak velocity of 2.13 with peak gradient of 18 and mean gradient of 6 with aortic valve area calculated at 1.02 cm2. There is no aortic insufficiency. Tricuspid valve shows mild tricuspid regurgitation with mild pulmonary hypertension with estimated pulmonary artery systolic pressure of 42. Pulmonary valve shows no pulmonary insufficiency. There is no pericardial effusion. IMPRESSION 1. Technically difficult study. 2. Normal LV systolic function with ejection fraction of about 55%. 3. Left atrial dilation. 4. Mild mitral regurgitation. 5. Moderate aortic stenosis with a valve area of 1.02 cm2. 6. Mild tricuspid regurgitation with mild pulmonary hypertension with estimated pulmonary artery systolic pressure of 42. 10/15/17 13:50 Discharge Plan - Med Rec/Dispo Referrals/Follow Up: Abdiel Mcdermott MD [Physician] - 10/29/17 1:30 pm Roland Hernadez MD [Physician] - 2 Weeks (APPOINTMENT ON 10/31 AT 1245 CHECK IN APPOITMENT AT 1PM. [facility] [address] Additional Instructions: MAKE APPOINTMENT WITH DR GLEZ INFECTIOUS DISEASE DOCTOR [phone] [place] [address]. Prescriptions: New PredniSONE [Deltasone 10 mg] 10 mg PO BIDWM #9 tab Continue Pantoprazole Sodium [Protonix] 40 mg PO DAILY ALPRAZolam [Xanax] 0.25 mg PO BID PRN PRN Reason: Anxiety Levothyroxine Tab [Synthroid] 25 mcg PO ACB Furosemide [Lasix] 20 tab PO DAILY Atorvastatin [Lipitor] 20 tab PO HS Metformin HCl [Glucophage] 500 mg PO BID Melatonin 5 mg Tablet 5 mg PO HS PRN PRN Reason: Insomnia Guaifenesin [Mucinex] 600 mg PO BID Aspirin [ASA] 325 mg PO HS Albuterol Sulfate 2.5 mg AEROSOL Q4HR PRN PRN Reason: Shortness Of Air/Wheezing Trazodone [Desyrel] 50 mg PO HS Oseltamivir Cap [Tamiflu] 75 mg PO BID Benzonatate 1 cap PO TID Tiotropium [place] [Spiriva Respimat] 2.5 mcg ORAL INH DAILY Oxycodone/Apap 10/325 [Percocet 10/325] 1 - 2 tab PO Q4HR PRN PRN Reason: Pain Ropinirole [Requip] 1 mg PO HS Isosorbide Mononitrate ER [Imdur] 60 mg PO DAILY Montelukast Sodium [Singulair] 10 mg PO HS Fluticasone/Vilanterol [Breo Ellipta 200-25 Mcg Inhaler] 1 puff INH DAILY Escitalopram Oxalate [Lexapro] 10 mg PO DAILY - Disposition 01 Discharged Home, Self-Care - Dismissal Complete Discharge Instructions are:: Complete <Abdiel Mcdermott - Last Filed: 10/18/17 13:23> Discharge Information Date of admission: 10/08/17 10:37 Attending Physician: Abdiel Mcdermott MD Primary care physician: Abdulaziz Jay MD Consults: 10/08/17 08:57 Physician Consult [CONS] Routine Consulting Provider: Roland Hernadez Reason For Exam: Influenza A, pneumonia Ordering Provider has Notified Bankruptcy Processor: No Comment: NOTIFIED 0915 [facility] - Discharge Diagnosis (1) Acute on chronic respiratory failure with hypoxia Status: Acute (2) Influenza A Status: Acute (3) COPD with acute exacerbation Status: Acute (4) Non-ST elevation myocardial infarction (NSTEMI), type 2 Status: Acute - Laboratory Labs: 10/15/17 04:14 10/15/17 04:14 Hospital Course This is a general summary of the patient's hospital course. For more details refer to the complete medical record. Exam Vital signs: Temperature 98.2 F 10/15/17 15:23 Pulse Rate 88 10/15/17 16:00 Respiratory Rate 24 10/15/17 15:23 Blood Pressure 126/65 10/15/17 15:23 Pulse Oximetry 94 10/15/17 15:23 - Constitutional no acute distress, well nourished, cooperative - Routine HEENT Exam Head: Present: normocephalic ENT: Present: mucous membranes moist - Routine Neck Exam Absent: JVD, carotid bruit - Routine Chest/Breast/Axilla Exam Chest wall: Absent: tenderness - Routine Respiratory Exam Present: decreased breath sounds, wheezes. Absent: rales - Routine Cardiovascular Exam Present: RRR, no murmur - Routine Abdominal Exam Present: soft, normoactive bowel sounds - Routine Extremities Exam Present: no edema - Routine Skin Exam Present: intact, dry, warm - Routine Neurological Exam Present: alert, oriented X3 - Routine Psychiatric Exam Present: normal affect, normal thought process Results 10/15/17 04:14 10/15/17 04:14 Attestation Narriative - Attestation Attestation Narrative: 10/18/17 13:23 Recommendation After examining the patient I agree with the above assessment. I am involved in the formulation of the patient's plan of care.
[2017-10-15 15:24] VITALS: BP 126/65; TEMP 98.2; O2SAT 94
[2017-10-15 20:02] VITALS: PULSE 88
== END 2017-10-15 18:35 | disposition home or self-care (01) | DRG 193 ==
LOC: INTOOBSV 16:45 → CCU 16:45 → MED 10-08 00:08
PROVIDERS: ADMIT Internal Medicine Cardiovascular Disease; ATTEND Internal Medicine Cardiovascular Disease

== ENCOUNTER 2017-10-30 17:00 | Inpatient (IN) ==
[2017-10-29 15:37] VITALS: BMI 40.8
--- NOTE | 2017-10-29 16:24 | XRay Report ---
Indication: HF PROCEDURE: XR chest 1V: Encounter: Initial Comparison: October 12, 2017 Findings: Left dual lead cardiac pacemaker. Multiple overlying leads. No focal consolidative pneumonia, pleural effusion or pneumothorax. Heart size and mediastinal contours are stable allowing for differences in technique. Pulmonary vascularity is stable. Impression: Stable chest without focal pneumonia or overt congestive failure. .
[2017-10-29] MEDS: DiltiaZEM IR 30 MG TABLET PO SCH ×2 (17:58→20:45)
[2017-10-29] MEDS: GUAIFENESIN LA 600 MG TABLET PO SCH (20:45)
[2017-10-29] MEDS: ROPINIROLE 1 MG TABLET PO SCH (20:45)
[2017-10-29] MEDS: METFORMIN 500 MG TABLET PO SCH (20:46)
[2017-10-29] MEDS: ENOXAPARIN 120 MG/0.8 ML INJECTION SQ SCH (20:46)
[2017-10-29] MEDS: TRAZODONE 50 MG PO SCH (20:49)
[2017-10-29] MEDS: MONTELUKAST 10 MG PO SCH (20:49)
[2017-10-29] MEDS: FUROSEMIDE 40 MG/4 ML INJECTION IVP SCH (20:51)
[2017-10-29] MEDS: ATORVASTATIN 20 MG PO SCH (20:51)
[2017-10-30] MEDS: FUROSEMIDE 40 MG/4 ML INJECTION IVP SCH ×4 (03:16→20:35)
[2017-10-30] MEDS: DiltiaZEM IR 30 MG TABLET PO SCH ×2 (06:16→15:22)
[2017-10-30] MEDS: LEVOTHYROXINE 25 MCG PO SCH (06:17)
[2017-10-30] MEDS: POM PANTOPRAZOLE 40 MG TABLET PO SCH (06:17)
[2017-10-30] MEDS: ISOSORBIDE MONONITRATE 60 MG PO SCH (06:17)
[2017-10-30] MEDS: ASPIRIN *EC* 325 MG TABLET PO SCH (09:15)
[2017-10-30] MEDS: ENOXAPARIN 120 MG/0.8 ML INJECTION SQ SCH ×2 (09:15→20:38)
[2017-10-30] MEDS: ESCITALOPRAM 10 MG TABLET PO SCH (09:16)
[2017-10-30] MEDS: METFORMIN 500 MG TABLET PO SCH ×2 (09:22→18:26)
[2017-10-30] MEDS: FLUTICASONE ORAL INH SCH (09:40)
[2017-10-30] MEDS: VILANTEROL ORAL INH SCH (09:40)
[2017-10-30] MEDS: POM TIOTROPIUM 18mcg/cap HANDIHALER ORAL INH SCH (09:42)
[2017-10-30] MEDS: LOSARTAN 50 MG TABLET PO SCH (09:52)
[2017-10-30] MEDS: ALBUTEROL 2.5mg/3ml (0.083%) NEB AEROSOL PRN (12:28)
[2017-10-30] MEDS: GUAIFENESIN LA 600 MG TABLET PO SCH ×2 (15:10→20:35)
[~2017-10-30 17:00] MED LIST: FLECAINIDE 100 MG TABLET PO ONE; FUROSEMIDE 40 MG/4 ML INJECTION IVP SCH; FUROSEMIDE 80 MG TABLET PO SCH; FentaNYL 100 MCG/2 ML INJECTION IVP ONE; MIDAZOLAM 2mg/2ml INJECTION IVP ONE; Oxycodone/Apap 10/325 1 TAB PO PRN; POM SACUBITRIL/VALSARTAN 49/51mg TABLET PO SCH; SALINE FLUSH 10ml SYRINGE ONE
--- NOTE | 2017-10-30 19:37 | Transesophageal Echocardiogram ---
DATE OF PROCEDURE October 30, 2017 The patient is an 87-year-old lady who was admitted with symptomatic atrial fibrillation of recent onset, but unknown duration and rapid ventricular rate. She was referred for further evaluation by transesophageal echocardiogram and possible cardioversion. Informed consent was obtained after explaining the procedure and the potential risks to the patient who agreed to proceed with the procedure. PROCEDURE 1. Transesophageal echocardiogram. 2. Card DC cardioversion. Conscious sedation was performed using Versed and fentanyl. Cetacaine spray was used for pharyngeal anesthesia. Probe was advanced into the esophagus and stomach and images were obtained in multiple planes. Left atrium is dilated. Left ventricular end-diastolic dimension is normal. Left ventricular wall thickness is normal. LV systolic function is normal with ejection fraction of about 55%. Right atrium is normal. Right ventricle is normal. There is no thrombus in left atrium, left atrial appendage or left ventricle. Mitral valve is morphologically normal with mild mitral regurgitation. Aortic valve shows fibrocalcific changes with no stenosis. Trace of aortic insufficiency is present. Tricuspid valve is morphologically normal with trace of tricuspid regurgitation. Pulmonary valve appears to be normal. There is no pericardial effusion. Agitated saline was injected which showed no evidence of [id number] shunt. Descending thoracic aorta shows mild atherosclerosis. IMPRESSION 1. No intracardiac thrombus or mass. 2. Biatrial dilation. 3. Normal LV systolic function with ejection fraction of 55%. 4. Mild mitral regurgitation. 5. Aortic sclerosis with trace of aortic insufficiency. 6. Trace of tricuspid regurgitation. 7. 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 After reviewing the images we decided to proceed with cardioversion. Anterior- posterior Zoll pads were applied. 360 joules of energy were delivered in a synchronized manner and patient converted from atrial fibrillation to sinus rhythm. She tolerated the procedure well with no complications. IMPRESSION Successful DC cardioversion of atrial fibrillation to sinus rhythm. PLAN Will continue anticoagulation and start antiarrhythmics to maintain sinus. [facility]
[2017-10-30] MEDS: TRAZODONE 50 MG PO SCH (20:34)
[2017-10-30] MEDS: FLECAINIDE 100 MG TABLET PO SCH (20:34)
[2017-10-30] MEDS: ATORVASTATIN 20 MG PO SCH (20:38)
[2017-10-30] MEDS: MONTELUKAST 10 MG PO SCH (20:38)
[2017-10-30] MEDS: ROPINIROLE 1 MG TABLET PO SCH (20:39)
[2017-10-31] MEDS: FUROSEMIDE 40 MG/4 ML INJECTION IVP SCH ×3 (02:39→15:33)
[2017-10-31] MEDS: SALINE FLUSH 10ml SYRINGE IV PRN ×3 (02:45→21:17)
[2017-10-31] MEDS: ISOSORBIDE MONONITRATE 60 MG PO SCH (06:18)
[2017-10-31] MEDS: LEVOTHYROXINE 25 MCG PO SCH (06:27)
[2017-10-31] MEDS: POM PANTOPRAZOLE 40 MG TABLET PO SCH (06:27)
[2017-10-31] MEDS: FLUTICASONE ORAL INH SCH (08:18)
[2017-10-31] MEDS: VILANTEROL ORAL INH SCH (08:18)
[2017-10-31] MEDS: POM TIOTROPIUM 18mcg/cap HANDIHALER ORAL INH SCH (09:32)
[2017-10-31] MEDS: ALBUTEROL 2.5mg/3ml (0.083%) NEB AEROSOL PRN ×2 (09:41→18:40)
[2017-10-31] MEDS: FLECAINIDE 100 MG TABLET PO SCH ×2 (11:41→21:16)
[2017-10-31] MEDS: METFORMIN 500 MG TABLET PO SCH ×2 (11:41→18:23)
[2017-10-31] MEDS: ENOXAPARIN 120 MG/0.8 ML INJECTION SQ SCH (11:41)
[2017-10-31] MEDS: ESCITALOPRAM 10 MG TABLET PO SCH (11:42)
[2017-10-31] MEDS: GUAIFENESIN LA 600 MG TABLET PO SCH ×2 (11:42→21:17)
[2017-10-31] MEDS: LOSARTAN 50 MG TABLET PO SCH (11:42)
[2017-10-31] MEDS: ASPIRIN *EC* 325 MG TABLET PO SCH (11:42)
--- NOTE | 2017-10-31 16:12 | Cardiology Progress Note ---
<Mirian Moran - Last Filed: 11/01/17 15:07> Subjective Principal diagnosis: afib Interval history: Marlyn is seen in follow up for new onset A Fib. She remains in SR, on Flecainide. She denies chest pain or dyspnea has frequent cough, wears O2 at 2L intermittently Exam Vital signs: Temperature 96.6 F L 10/31/17 15:00 Pulse Rate 78 10/31/17 15:00 Respiratory Rate 20 10/31/17 15:00 Blood Pressure 91/56 10/31/17 15:00 Pulse Oximetry 92 10/31/17 15:00 - Constitutional no acute distress, well nourished, cooperative - Routine HEENT Exam Head: Present: normocephalic ENT: Present: mucous membranes moist - Routine Neck Exam Absent: JVD, carotid bruit - Routine Chest/Breast/Axilla Exam Chest wall: Absent: tenderness - Routine Respiratory Exam Present: decreased breath sounds, diminished air movement. Absent: CTA bilaterally - Routine Cardiovascular Exam Present: RRR - Routine Abdominal Exam Present: soft - Routine Extremities Exam Present: edema - Routine Skin Exam Present: intact, dry, warm - Routine Neurological Exam Present: alert, oriented X3 - Routine Psychiatric Exam Present: normal affect, normal thought process - Additional findings Additional findings: Albuterol Sulfate (Proventil Neb (0.083%)) 2.5 mg AEROSOL Q4HR PRN PRN Reason: Shortness of air/wheezing Last Admin: 10/31/17 09:41 Dose: 2.5 mg Apixaban (Eliquis) 2.5 mg PO BID [facility] Atorvastatin Calcium (Lipitor) 40 mg PO HS [facility] Last Admin: 10/30/17 20:38 Dose: 40 mg Escitalopram Oxalate (Lexapro) 10 mg PO DAILY [facility] Last Admin: 10/31/17 11:42 Dose: 10 mg Flecainide Acetate (Tambocor) 50 mg PO BID [facility] Last Admin: 10/31/17 11:41 Dose: 50 mg Fluticasone/Vilanterol (Breo Ellipta Inhaler) 1 puff ORAL INH DAILY [facility] Last Admin: 10/31/17 08:18 Dose: 1 puff Furosemide (Lasix) 80 mg PO [id number] [facility] Guaifenesin (Mucinex [place]) 600 mg PO BID [facility] Last Admin: 10/31/17 11:42 Dose: 600 mg Isosorbide Mononitrate (Imdur) 60 mg PO 0700 [facility] Last Admin: 10/31/17 06:18 Dose: 60 mg Levothyroxine Sodium (Synthroid) 25 mcg PO ACB [facility] Last Admin: 10/31/17 06:27 Dose: 25 mcg Losartan Potassium (Cozaar) 50 mg PO DAILY [facility] Last Admin: 10/31/17 11:42 Dose: 50 mg Metformin HCl (Glucophage) 500 mg PO BIDBS [facility] Last Admin: 10/31/17 11:41 Dose: 500 mg Montelukast Sodium (Singulair) 10 mg PO HS [facility] Last Admin: 10/30/17 20:38 Dose: 10 mg Oxycodone/Acetaminophen (Percocet 10/325) 1 - 2 tab PO Q4HR PRN PRN Reason: Pain Pantoprazole Sodium (Protonix Tab) 40 mg PO ACB [facility] Last Admin: 10/31/17 06:27 Dose: 40 mg Potassium Chloride (K-Dur 20 Meq Tablet) 20 meq PO TIDWM [facility] Last Admin: 10/31/17 12:48 Dose: 20 meq Ropinirole HCl (Requip) 1 mg PO HS [facility] Last Admin: 10/30/17 20:39 Dose: 1 mg Sodium Chloride (Iv Flush) 10 - 80 ml IV PRN PRN PRN Reason: Flushing Last Admin: 10/31/17 11:42 Dose: 30 ml Tiotropium [place] (Spiriva) 1 cap ORAL INH DAILY [facility] Last Admin: 10/31/17 09:32 Dose: 1 cap Trazodone HCl (Desyrel) 50 mg PO [facility] Last Admin: 10/30/17 20:34 Dose: 50 mg - Urinary Catheter Management Urethral Cath placed during this visit: yes, but has since been removed by the nurse Insertion date: 10/29/17 Insertion time: 17:30 Removal date: 10/31/17 Removal time: 15:43 Results 11/01/17 04:09 11/01/17 04:09 CBC 10/31/17 Range/Units 03:58 WBC 6.8 (4.5-11.0) T/MM3 RBC 3.56 L (4.00-5.20) M/MM3 Hgb 10.4 L (12-16) GM/DL Hct 33.8 L (36-46) % Plt Count 171 (130-400) T/MM3 Comprehensive Metabolic Panel 10/31/17 Range/Units 03:58 Sodium 139 (134-144) MEQ/L Potassium 4.1 (3.6-5) MEQ/L Chloride 97 L (98-107) MEQ/L Carbon Dioxide 33 H (22-30) MEQ/L BUN 16.0 (7-17) MG/DL Creatinine 1.2 (0.7-1.2) MG/DL Glucose 107 (65-110) MG/DL Calcium 9.2 (8.4-10.2) MG/DL Intake and Output 10/31/17 10/31/17 10/31/17 06:59 14:59 22:59 Intake Total 400 / 400 Output Total 2300 / 2300 225 / 225 Balance -1900 / -1900 -225 / -225 Intake: Oral 400 / 400 Output: Urine Amount (Catheter) 2300 / 2300 225 / 225 Other: Urine Appearance Clear Clear Urine Color Pale Pale Yellow Yellow Urine Odor Normal Weight 248 lb 0.321 oz Patient Weight 11/01/17 06:59 Weight 248 lb 0.321 oz - Imaging and Cardiology Imaging & Cardiology Narrative: Date of Exam: 10/30/17 Type of Exam(s): US obey w/ doppler DATE OF PROCEDURE October 30, 2017 The patient is an 87-year-old lady who was admitted with symptomatic atrial fibrillation of recent onset, but unknown duration and rapid ventricular rate. She was referred for further evaluation by transesophageal echocardiogram and possible cardioversion. Informed consent was obtained after explaining the procedure and the potential risks to the patient who agreed to proceed with the procedure. PROCEDURE 1. Transesophageal echocardiogram. 2. Card DC cardioversion. Conscious sedation was performed using Versed and fentanyl. Cetacaine spray was used for pharyngeal anesthesia. Probe was advanced into the esophagus and stomach and images were obtained in multiple planes. Left atrium is dilated. Left ventricular end-diastolic dimension is normal. Left ventricular wall thickness is normal. LV systolic function is normal with ejection fraction of about 55%. Right atrium is normal. Right ventricle is normal. There is no thrombus in left atrium, left atrial appendage or left ventricle. Mitral valve is morphologically normal with mild mitral regurgitation. Aortic valve shows fibrocalcific changes with no stenosis. Trace of aortic insufficiency is present. Tricuspid valve is morphologically normal with trace of tricuspid regurgitation. Pulmonary valve appears to be normal. There is no pericardial effusion. Agitated saline was injected which showed no evidence of [id number] shunt. Descending thoracic aorta shows mild atherosclerosis. IMPRESSION 1. No intracardiac thrombus or mass. 2. Biatrial dilation. 3. Normal LV systolic function with ejection fraction of 55%. 4. Mild mitral regurgitation. 5. Aortic sclerosis with trace of aortic insufficiency. 6. Trace of tricuspid regurgitation. 7. 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 After reviewing the images we decided to proceed with cardioversion. Anterior- posterior Zoll pads were applied. 360 joules of energy were delivered in a synchronized manner and patient converted from atrial fibrillation to sinus rhythm. She tolerated the procedure well with no complications. IMPRESSION Successful DC cardioversion of atrial fibrillation to sinus rhythm. PLAN Will continue anticoagulation and start antiarrhythmics to maintain sinus. 11/01/17 15:08 Assessment and Plan - Assessment and Plan (1) Atrial fibrillation with RVR Status: Acute New onset A Fib: OBEY/ DCCV 10/30/17 - Started on Flecainide 50mg BID for antiarrhythmic therapy - Start Eliquis 2.5mg po for anticoagulation to prevent stroke - monitor cardiac telemetry - EKG in am (2) Acute diastolic CHF (congestive heart failure) Status: Acute Change Lasix 40mg IV q6h to PO 80mg BID for continued diuresis. - Assessment and Plan New onset A Fib: OBEY/ DCCV 10/30/17 - Started on Flecainide 50mg BID for antiarrhythmic therapy - Start Eliquis 2.5mg po for anticoagulation to prevent stroke - monitor cardiac telemetry - EKG in am Acute DCHF: Change Lasix 40mg IV q6h to PO 80mg BID for continued diuresis. - Monitor Renal and electrolytes Hospital Course Summary Disclaimer: The visit summary below is not to be considered part of the above Progress Note. <Abdiel Mcdermott - Last Filed: 11/04/17 10:35> Exam Vital signs: Temperature 96.3 F L 11/01/17 12:15 Pulse Rate 78 11/01/17 12:15 Respiratory Rate 16 11/01/17 12:15 Blood Pressure 120/60 11/01/17 12:15 Pulse Oximetry 95 11/01/17 12:15 - Urinary Catheter Management Urethral Cath placed during this visit: no Results 11/01/17 04:09 11/01/17 04:09 Assessment and Plan - Assessment and Plan (1) Atrial fibrillation with RVR Status: Acute (2) Acute diastolic CHF (congestive heart failure) Status: Acute - Attestation Attestation Narrative: 11/04/17 10:34 Recommendation After examining the patient I agree with the above assessment. I am involved in the formulation of the patient's plan of care. Hospital Course Summary Disclaimer: The visit summary below is not to be considered part of the above Progress Note.
[2017-10-31] MEDS: FUROSEMIDE 80 MG TABLET PO SCH (18:23)
[2017-10-31] MEDS: ATORVASTATIN 20 MG PO SCH (21:16)
[2017-10-31] MEDS: APIXABAN 2.5 MG TABLET PO SCH (21:17)
[2017-10-31] MEDS: MONTELUKAST 10 MG PO SCH (21:17)
[2017-10-31] MEDS: ROPINIROLE 1 MG TABLET PO SCH (21:17)
[2017-10-31] MEDS: TRAZODONE 50 MG PO SCH (21:18)
[2017-11-01] MEDS: LEVOTHYROXINE 25 MCG PO SCH (06:02)
[2017-11-01] MEDS: POM PANTOPRAZOLE 40 MG TABLET PO SCH (06:03)
[2017-11-01] MEDS: ISOSORBIDE MONONITRATE 60 MG PO SCH (06:03)
[2017-11-01] MEDS: VILANTEROL ORAL INH SCH (08:20)
[2017-11-01] MEDS: FLUTICASONE ORAL INH SCH (08:20)
[2017-11-01] MEDS: METFORMIN 500 MG TABLET PO SCH (09:06)
[2017-11-01] MEDS: FLECAINIDE 100 MG TABLET PO SCH (09:06)
[2017-11-01] MEDS: GUAIFENESIN LA 600 MG TABLET PO SCH (09:06)
[2017-11-01] MEDS: FUROSEMIDE 80 MG TABLET PO SCH (09:06)
[2017-11-01] MEDS: APIXABAN 2.5 MG TABLET PO SCH (09:07)
[2017-11-01] MEDS: ESCITALOPRAM 10 MG TABLET PO SCH (09:07)
[2017-11-01] MEDS: LOSARTAN 50 MG TABLET PO SCH (09:07)
[2017-11-01] MEDS: POM TIOTROPIUM 18mcg/cap HANDIHALER ORAL INH SCH (09:10)
[2017-11-01 10:34] VITALS: RESP 16; O2SAT 95
[2017-11-01 12:16] VITALS: BP 120/60; PULSE 78; TEMP 96.3
[2017-11-01] MEDS ORDERED: POM LOSARTAN 50 MG TABLET PO SCH (13:51)
--- NOTE | 2017-11-01 15:11 | Discharge Summary ---
<Mirian Moran - Last Filed: 11/01/17 16:09> Discharge Information Date of admission: 10/31/17 08:50 Anticipated date of discharge: 11/01/17 Attending Physician: Abdiel Mcdermott MD Primary care physician: Abdulaziz Jay MD Consults: 11/01/17 10:38 Dietary Consult [CONS] Routine Comment: Reason For Exam: education of heart failure diet/ fluid restriction - Discharge Diagnosis (1) Atrial fibrillation with RVR Status: Acute (2) Acute diastolic CHF (congestive heart failure) Status: Acute atrial fibrillation, acute diastolic HF - Laboratory Labs: 11/01/17 04:09 11/01/17 04:09 History of Present Illness HPI: 11/01/17 15:09 Marlyn is a 87 year old female who is known to Dr. Mcdermott who was admitted from the clinic for new onset A Fib with RVR and acute diastolic heart failure. Hospital Course This is a general summary of the patient's hospital course. For more details refer to the complete medical record. Hospital course: Successful DC cardioversion of atrial fibrillation to sinus rhythm. Will continue anticoagulation and start antiarrhythmics to maintain sinus. Started on Flecainide 50mg BID and Eliquis 2.5mg BID Time spent with patient: 25 - 35 minutes Resuscitation Status: Full Code Exam Vital signs: Temperature 96.3 F L 11/01/17 12:15 Pulse Rate 78 11/01/17 12:15 Respiratory Rate 16 11/01/17 12:15 Blood Pressure 120/60 11/01/17 12:15 Pulse Oximetry 95 11/01/17 12:15 - Constitutional no acute distress, well nourished, cooperative - Routine HEENT Exam Head: Present: normocephalic ENT: Present: mucous membranes moist - Routine Neck Exam Absent: JVD, carotid bruit - Routine Chest/Breast/Axilla Exam Chest wall: Absent: tenderness - Routine Respiratory Exam Present: diminished air movement. Absent: dyspnea, CTA bilaterally, rales, wheezes - Routine Cardiovascular Exam Present: RRR, no murmur - Routine Abdominal Exam Present: soft, normoactive bowel sounds - Routine Extremities Exam Present: no edema - Routine Skin Exam Present: intact, dry, warm - Routine Neurological Exam Present: alert, oriented X3 - Routine Psychiatric Exam Present: normal affect, normal thought process Results 11/01/17 04:09 11/01/17 04:09 CBC 11/01/17 Range/Units 04:09 WBC 5.7 (4.5-11.0) T/MM3 RBC 3.60 L (4.00-5.20) M/MM3 Hgb 10.5 L (12-16) GM/DL Hct 34.4 L (36-46) % Plt Count 161 (130-400) T/MM3 Comprehensive Metabolic Panel 11/01/17 Range/Units 04:09 Sodium 137 (134-144) MEQ/L Potassium 4.6 (3.6-5) MEQ/L Chloride 97 L (98-107) MEQ/L Carbon Dioxide 30 (22-30) MEQ/L BUN 20.0 H (7-17) MG/DL Creatinine 1.3 H D (0.7-1.2) MG/DL Glucose 104 (65-110) MG/DL Calcium 9.0 (8.4-10.2) MG/DL Intake and Output 11/01/17 11/01/17 11/01/17 06:59 14:59 22:59 Intake Total 360 / 360 Output Total 150 / 150 Balance 210 / 210 Intake: Oral 360 / 360 Output: Urine 150 / 150 Other: Urine Appearance Clear Clear Urine Color Yellow Yellow Urine Odor Normal # Voids 1 # Incontinent Voids 1 Weight 247 lb 2.211 oz Patient Weight 11/02/17 06:59 Weight 247 lb 2.211 oz - Imaging and Cardiology Echo: report reviewed Imaging & Cardiology Narrative: Date of Exam: 10/30/17 Type of Exam(s): US obey w/ doppler DATE OF PROCEDURE October 30, 2017 The patient is an 87-year-old lady who was admitted with symptomatic atrial fibrillation of recent onset, but unknown duration and rapid ventricular rate. She was referred for further evaluation by transesophageal echocardiogram and possible cardioversion. Informed consent was obtained after explaining the procedure and the potential risks to the patient who agreed to proceed with the procedure. PROCEDURE 1. Transesophageal echocardiogram. 2. Card DC cardioversion. Conscious sedation was performed using Versed and fentanyl. Cetacaine spray was used for pharyngeal anesthesia. Probe was advanced into the esophagus and stomach and images were obtained in multiple planes. Left atrium is dilated. Left ventricular end-diastolic dimension is normal. Left ventricular wall thickness is normal. LV systolic function is normal with ejection fraction of about 55%. Right atrium is normal. Right ventricle is normal. There is no thrombus in left atrium, left atrial appendage or left ventricle. Mitral valve is morphologically normal with mild mitral regurgitation. Aortic valve shows fibrocalcific changes with no stenosis. Trace of aortic insufficiency is present. Tricuspid valve is morphologically normal with trace of tricuspid regurgitation. Pulmonary valve appears to be normal. There is no pericardial effusion. Agitated saline was injected which showed no evidence of [id number] shunt. Descending thoracic aorta shows mild atherosclerosis. IMPRESSION 1. No intracardiac thrombus or mass. 2. Biatrial dilation. 3. Normal LV systolic function with ejection fraction of 55%. 4. Mild mitral regurgitation. 5. Aortic sclerosis with trace of aortic insufficiency. 6. Trace of tricuspid regurgitation. 7. 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 After reviewing the images we decided to proceed with cardioversion. Anterior- posterior Zoll pads were applied. 360 joules of energy were delivered in a synchronized manner and patient converted from atrial fibrillation to sinus rhythm. She tolerated the procedure well with no complications. IMPRESSION Successful DC cardioversion of atrial fibrillation to sinus rhythm. PLAN Will continue anticoagulation and start antiarrhythmics to maintain sinus. 11/01/17 15:09 Discharge Plan - Med Rec/Dispo Referrals/Follow Up: Abdiel Mcdermott MD [Physician] - 11/19/17 10:50 am Erin Instructions: A-fib (Atrial Fibrillation) (DC), Fluid Restriction (GEN) Prescriptions: New Apixaban [Eliquis] 2.5 mg PO BID #60 tab Flecainide [Tambocor] 50 mg PO BID #60 tab Furosemide [Lasix] 80 mg PO DAILY #30 tab Losartan [Cozaar] 25 mg PO DAILY #30 tab Potassium Chloride [K-DUR 20 mEq Tablet] 20 meq PO WB #30 tab Continue Pantoprazole Sodium [Protonix] 40 mg PO DAILY ALPRAZolam [Xanax] 0.25 mg PO BID PRN PRN Reason: Anxiety Levothyroxine Tab [Synthroid] 25 mcg PO ACB Atorvastatin [Lipitor] 20 tab PO HS Metformin HCl [Glucophage] 500 mg PO BID Guaifenesin [Mucinex] 600 mg PO BID Albuterol Sulfate 2.5 mg AEROSOL Q4HR PRN PRN Reason: Shortness Of Air/Wheezing Trazodone [Desyrel] 50 mg PO HS Tiotropium [place] [Spiriva Respimat] 2 puff ORAL INH DAILY Oxycodone/Apap 10/325 [Percocet 10/325] 1 - 2 tab PO Q4HR PRN PRN Reason: Pain Ropinirole [Requip] 1 mg PO HS Isosorbide Mononitrate ER [Imdur] 60 mg PO DAILY Montelukast Sodium [Singulair] 10 mg PO HS Fluticasone/Vilanterol [Breo Ellipta 200-25 Mcg Inhaler] 1 puff INH DAILY Escitalopram Oxalate [Lexapro] 10 mg PO DAILY Discontinued Furosemide [Lasix] 20 tab PO BID Aspirin *EC* [Ecotrin] 1 tab PO DAILY SACUBITRIL/VALSARTAN 49/51mg [ENTRESTO 49/51mg] 1 tab PO BID - Disposition 01 Discharged Home, Self-Care - Dismissal Complete Discharge Instructions are:: Complete <Abdiel Mcdermott - Last Filed: 11/04/17 10:48> Discharge Information Date of admission: 10/31/17 08:50 Attending Physician: Abdiel Mcdermott MD Primary care physician: Abdulaziz Jay MD Consults: 11/01/17 10:38 Dietary Consult [CONS] Routine Comment: Reason For Exam: education of heart failure diet/ fluid restriction - Discharge Diagnosis (1) Atrial fibrillation with RVR Status: Acute (2) Acute diastolic CHF (congestive heart failure) Status: Acute - Laboratory Labs: 11/01/17 04:09 11/01/17 04:09 Hospital Course This is a general summary of the patient's hospital course. For more details refer to the complete medical record. Exam Vital signs: Temperature 96.3 F L 11/01/17 12:15 Pulse Rate 78 11/01/17 12:15 Respiratory Rate 16 11/01/17 12:15 Blood Pressure 120/60 11/01/17 12:15 Pulse Oximetry 95 11/01/17 12:15 Results 11/01/17 04:09 11/01/17 04:09 Attestation Narriative - Attestation Attestation Narrative: 11/04/17 10:48 Recommendation After examining the patient I agree with the above assessment. I am involved in the formulation of the patient's plan of care.
[2017-11-02] MEDS ORDERED: FUROSEMIDE 80 MG TABLET PO SCH (09:00)
== END 2017-11-01 16:25 | disposition home or self-care (01) | DRG 308 ==
LOC: CCU → SRG 17:00
PROVIDERS: ADMIT Internal Medicine Cardiovascular Disease; ATTEND Internal Medicine Cardiovascular Disease